=== PATIENT | male | born 1930 | race Caucasian/White ===

== ENCOUNTER 2016-11-17 18:41 | Inpatient (IN) | payer MEDICARE, OTHER ==
[~2016-11-17] VITALS: Ht 182.9 cm; Wt 86.2 kg
[2016-11-17 18:41] VITALS: BP 132/75; PULSE 99; RESP 26; O2SAT 96
[~2016-11-17 18:41] MED LIST: ASPI-973 PO; CIPR-231 PO; FINA5TAB9 PO; FUR20 PO; KTC2C15 TOPICAL; TAMS0.4C29 PO; TRAM50TA2 PO
[2016-11-17] MEDS ORDERED: BETH5TAB PO (18:52)
--- NOTE | 2016-11-17 19:00 | ED.REPORT ---
HPI-Altered Mental Status Date of Service Nov 17, 2016 ED Provider: Rocky Castro MD Pt is an 86 year old male with a hx of CHF, dementia, and cancer presenting to the ED via EMS due to decreased LOC. Associated symptoms include fever (101.2) and a cough. The pt lives in a [facility] and is DNAR code status. Nursing Notes Stated Complaint: DECREASED LOC Chief Complaint: General Complaint Nursing Notes Reviewed: Yes ([employer], [employer] reconciled) Allergies: Coded Allergies: No Known Allergies (Verified , 11/17/16) Scheduled Aspirin (Aspirin) 81 Mg Tablet 81 MG PO DAILY Bethanechol Chloride (Bethanechol Chloride) 5 Mg Tablet 10 MG PO TID Finasteride (Finasteride) 5 Mg Tablet 5 MG PO DAILY Furosemide (Furosemide) 20 Mg Tab 20 MG PO DAILY Tamsulosin ER (Tamsulosin ER) 0.4 Mg Cap.er.24h 0.4 MG PO DAILY Scheduled PRN Ketoconazole (Ketoconazole) 15 Gm Cream..g. 1 APPLIC TOPICAL BID PRN PRN PRN apply to both feet 1-2 x a day as needed General Time Seen by MD: 18:55 Chief Complaint Decreased responsiveness Hx Obtained From: EMS Arrived By: Ambulance Sudden in Onset?: No Onset Occurred: Onset unknown Symptom Duration: Since onset Progression since Onset: Constant Severity: Current: No pain currently Severity: Maximum: No pain Recent Healthcare: No recent doctor visit, No recent hospitalization Similar Sx Previous: No Past Medical History Past Medical History Notes: Auto Glass Worker: Franca Verduzco - Admit for prostate abscess 03/2016 Past Medical History Code Status: DNR/COMFORT CARE History of bladder stones History of bladder CA History of SVT History of osteoarthritis History of hyperlipidemia History of spinal stenosis this History of AAA Reports: Cancer, Congestive heart failure Reports: Atrial fibrillation, Dementia Past Surgical History TURP Status post laminectomy Tonsillectomy Bilateral eardrum reconstruction Sun's neuroma left foot Smoking History Unknown if Ever Smoker Social History Other Social History: Good social support Ambulatory Status Walker Review of Systems Unable to Obtain ROS Patient condition Physical Exam Initial Vital Signs Vital Signs (First) Date Time Temp Pulse Resp B/P Pulse Ox O2 Delivery O2 Flow Rate FiO2 11/17/16 18:41 39.1 99 26 132/75 96 Room Air 12/31/16 20:01 1 Initial VS: Reviewed, Vital signs abnormal Abdomen / GI: No distention Extremities: Vascular intact, Neuro intact, No swelling, No tenderness Skin: Warm, Dry, No cyanosis Psychiatric: Mood/affect normal, Behavior normal, Normal thought content General/Constitutional: Awake Distress / Hydration: Positive: Dehydration moderate Pt is incredibly weak. Eyes closed, flutter to voice. Wiggles toes but is unable to lift arms due to weakness. Skin poor turgor. Head / Eyes: Atraumatic Neck: Atraumatic, Supple Respiratory / Chest: No respiratory distress Coarse breath sounds. Not tachypnic or dyspnic. Cardiovascular: Heart rate NL ENT: Airway patent Interpretation & Diagnostics Lab Results Interpretation Result Diagram: 11/17/16192411/17/161924 Test 11/17/16 19:25 White Blood Count 6.3th/mm3 (3.8-10.1) Red Blood Count 4.73mil/mm3 (4.40-5.80) Hemoglobin 14.3g/dL (13.8-17.2) Hematocrit 44.0% (41.0-50.0) Mean Corpuscular Volume 93.0fL (81-100) Mean Corpuscular Hemoglobin 30.2pg (27.0-35.0) Mean Corpuscular Hemoglobin Concent 32.5% (32.0-37.0) Red Cell Distribution Width 15.1% (12.3-15.4) Platelet Count 177bil/L (150-400) Neutrophils (%) (Auto) 79.1% (40-74) Lymphocytes (%) (Auto) 7.9% (14-46) Monocytes (%) (Auto) 12.0% (4-12) Eosinophils (%) (Auto) 0.6% (0-5) Basophils (%) (Auto) 0.2% (0-3) Sodium Level 135mEq/L (134-144) Potassium Level 4.5mEq/L (3.5-5.2) Chloride Level 100mEq/L (97-108) Carbon Dioxide Level 22mmol/L (18-29) Blood Urea Nitrogen 18mg/dL (8-27) Creatinine 0.83mg/dL (0.76-1.27) Estimat Glomerular Filtration Rate 93mL/min (>59) Glucose Level 120mg/dL (60-99) Lactic Acid Level 1.2mmol/L (0.4-2.0) Calcium Level 8.4mg/dL (8.5-10.1) Total Bilirubin 0.5mg/dL (0.0-1.2) Aspartate Amino Transf (AST/SGOT) 18U/L (0-50) Alanine Aminotransferase (ALT/SGPT) 13U/L (0-44) Alkaline Phosphatase 61U/L (25-160) Troponin T 0.018ug/L (0.0-0.011) Total Protein 6.5g/dL (6.4-8.4) Albumin 3.3g/dL (3.4-5.0) Lab Results Interpretation: CBC normal CMP normal Lactic acid normal Influenza A positive Component 1 indeterminate Blood cultures 2 pending X-Ray Chest Interpretation Chest Xray Interpretation: IMPRESSION: No acute cardiopulmonary disease. Right shoulder rotator cuff arthropathy. Dictated by: Antione Finley M.D. on 11/17/2016 at 19:22 View: Portable, 1 view Interpretation / Wet Read by: Interpret - Radiologist Re-Eval/Medical Decision Med Decision/Clinical Course This is an 86-year-old male who is comfort care and sent over from an adult home , fever and decreased responsiveness. Patienbt has a previous history of encephalopathy, the patient was previously here with sepsis and encephalopathy a few years ago. Patient is quite febrile, appears extremely fatigued and moderately ill and appears profoundly fatigued. Hhe cannot provide me any history, will not engage, but he wiggles his fingers and toes in request, he cannot lift them up off the gurney. No focal deficits are evident. It is difficult to tell if he is any discomfort and he does not nod his head yes or no, as records do indicate he is comfort care. The patient IV placed and was hydrated, as he does appear moderately dehydrated. Blood work is normal except for marginally elevated troponin of uncertain significance, in the setting of Comfort Care the absence of her chest pain and clearly with a presentation with infectious etiology today, not finding evidence of acute, primary cardiac pathology. No overt infiltrate is evident radiographically on chest x-ray. Influenza A, however is positive. I Required to attempt urine, he will be uncomfortable in the setting of a alternate diagnosis influenza a patient Comfort Care, a cathetered urine was not obtained. She received Toradol, low dose, IV fluids, rectal Tylenol, and return to see if the patient could take a dose orally of Tamiflu if if a bedside swallow eval suggests he could. Apparently receiving facility indicates he cannot take him back and care from the current setting. He is ill, profoundly weak-so the plan is admission with continued comfort care and supportive measures. The case is discussed with the hospitalist. Source of Hx: Old records Re-Evaluation/Progress : Time of Eval: 21:22 Patient Status: Condition improved Re-Evaluation/Progress Note: Discussed plan for admission. Pt understands and agrees with plan. Consultation : Referral / Consult Name: Mayte Kwong MD Consulted With: Hospitalist Call Returned at: 21:14 Sales Service Technician: Will see patient, Agrees with plan, Accepts admit Counseled Regarding: Diagnosis, Lab results, Need for follow-up, When/why to return to ED Patient Discharge & Departure Departure Notes COMFORT CARE Impression: Primary Impression: Influenza A Additional Impression: Generalized weakness Disposition: ADMITTED TO HOSPITAL Discharge Condition All VS Reviewed: Yes Condition: Improved Referrals: Jennifer Benavides MD (PCP) Scribe Attestation Portions of this note were transcribed by Kayley Durant. I, Dr. Castro personally performed the history, physical exam and medical decision-making; I reviewed and confirmed the accuracy of the information in the transcribed note. Signed by: Liz Baeza, 11/17/2016 at 9792. copies to: Jennifer Benavides MD, Matthew F MD Nov 17, 2016 19:00 KAYLEY DURANT Nov 17, 2016 19:29
--- NOTE | 2016-11-17 19:24 | DRSVH ---
PROCEDURE: X-RAY CHEST ONE VIEW, PORTABLE ([id number]) INDICATIONS: 86 year-old male with fever and cough. TECHNIQUE: One view of the chest was acquired. COMPARISON: [facility], CR, XR CHEST 1VW (PORTABLE), 03/14/2016, 13:00. [facility], CR, CHEST 2VW, 06/22/2014, 13:22. [facility], CR, CHEST 2VW, 06/18/2014, 15:44. FINDINGS: Surgical changes and devices: None. Lungs and pleura: No pleural effusions or pneumothorax. Lungs are clear. Mediastinum: Mediastinal contours appear normal. Heart size is normal. Bones and chest wall: No suspicious bony lesions. There is left glenohumeral joint degeneration. Th ere is narrowing of the right acromiohumeral interval with superior humeral head migration. Overlying soft tissues appear unremarkable. IMPRESSION: No acute cardiopulmonary disease. Right shoulder rotator cuff arthropathy. Dictated by: Antione Finley M.D. on 11/17/2016 at 19:22 Approved by: Antione Finley M.D. on 11/17/2016 at 19:22
[2016-11-17 19:35] LABS: BASOPHILS % (AUTO) 0.2 % (0-3); EOSINOPHILS % (AUTO) 0.6 % (0-5); Mean Corpuscular Hemoglobin 30.2 pg (27.0-35.0); NEUTROPHILS % (AUTO) 79.1 % (40-74); Platelet Count 177 bil/L (150-400)
[2016-11-17 20:01] VITALS: BP 121/64; PULSE 94; RESP 19; O2SAT 97
[2016-11-17 20:15] LABS: TROPONIN T 0.018 ug/L (0.0-0.011)
[2016-11-17] MEDS ORDERED: Ketorolac 15 mg/mL Inj IVPUSH ONE (20:55)
[2016-11-17 21:24] VITALS: BP 146/69; PULSE 96; RESP 18; O2SAT 94
[2016-11-17] MEDS ORDERED: 0.9% Sodium Chloride 1,000 ML IV SCH (21:39)
[2016-11-17] MEDS ORDERED: Ondansetron 2 mg/mL 2 mL Inj IVPUSH PRN ×2 (21:40→22:10)
[2016-11-17] MEDS ORDERED: Alum-Mag Hydrox-Simeth 30 mL Suspension PO PRN ×2 (21:40→22:10)
[2016-11-17] MEDS ORDERED: Polyethylene Glycol (PEG) 17 Gm Powder PO PRN (22:10)
[2016-11-17 22:33] VITALS: BP 116/63; PULSE 89; RESP 16; O2SAT 93
[2016-11-17 23:57] LABS: BASOPHILS % (AUTO) 0.1 % (0-3); EOSINOPHILS % (AUTO) 0.3 % (0-5); MONOCYTES % (AUTO) 15.4 % (4-12); Mean Corpuscular Hemoglobin 30.4 pg (27.0-35.0); Mean Corpuscular Volume 93.2 fL (81-100); NEUTROPHILS % (AUTO) 77.2 % (40-74); Platelet Count 172 bil/L (150-400)
--- NOTE | 2016-11-18 01:09 | NUR ---
Admission Pt arrived to room 3031 nonverbal, eyes open but pt will not acknowledge staff when spoken to, does not make eye contact, and does not fallow instructions. Staff were unable to orient Pt to room and call light use, bed alarm placed on as well as [place] alarm. Pt was assessed for bed ulcers but none were found as well as no redness. Pressure ulcer protocol initiated any way due to low Richie score. Pt is being turned every 4 hours. Pt was unable to respond to any admission questions. Pt placed on IV fluids and Droplet precautions.
[2016-11-18] MEDS: 0.9% Sodium Chloride 1,000 ML IV SCH ×3 (01:16→20:06)
--- NOTE | 2016-11-18 01:59 | PCM.HPMED ---
Subjective Date of Service Nov 18, 2016 Primary Provider: Admitting Physician: Mayte Kwong MD Primary Care Physician: Jennifer Benavides MD Attending Physician: Mayte Kwong MD Admit Status: From the Emergency Department, Full Admit, Non-Telemetry Chief Complaint: Increasing weakness and lethargy History of Present Illness: This is an 86-year-old male who was brought in from the detention with a fever of 101.2 and a cough. He was having increasing weakness and lethargy. He does live at a senior living and does have a CODE STATUS of DNR/DNI and comfort care only. He is unable to give us any details and is essentially alert but noncommunicative. Patient was found to have a PCR screen positive for influenza A. Chest x-ray did not show any acute cardiopulmonary disease. 6.3. Lactic acid is 1.2 which are here is 39.1. Room air sat is 96%. Review of Systems: Unable to obtain second dairy to patient's dementia Allergies Coded Allergies: No Known Allergies (Verified , 11/17/16) Home Medications Scheduled Aspirin (Aspirin) 81 Mg Tablet 81 MG PO DAILY Bethanechol Chloride (Bethanechol Chloride) 5 Mg Tablet 10 MG PO TID Finasteride (Finasteride) 5 Mg Tablet 5 MG PO DAILY Furosemide (Furosemide) 20 Mg Tab 20 MG PO DAILY Tamsulosin ER (Tamsulosin ER) 0.4 Mg Cap.er.24h 0.4 MG PO DAILY PMH Code Status: DNR/COMFORT CARE History of bladder stones History of bladder CA History of SVT History of osteoarthritis History of hyperlipidemia History of spinal stenosis this History of AAA Reports: Cancer, Congestive heart failure Reports: Atrial fibrillation, Dementia Past Surgical History TURP Status post laminectomy Tonsillectomy Bilateral eardrum reconstruction Sun's neuroma left foot Family History Unobtainable Social History Hx Alcohol Use: No Hx Substance Use: No Hx Tobacco Use: No Smoking Status: Unknown if Ever Smoker Living Arrangement: Assisted Living Exam Vital Signs Vital Sign - Last Date Time Temp Pulse Resp B/P Pulse Ox O2 Delivery O2 Flow Rate FiO2 11/17/16 22:46 Supplement Oxygen 11/17/16 22:33 38.1 89 16 116/63 93 1.00 Exam Constitutional: Elderly man who is noncommunicative and appears in mild pain distress Head: Normocephalic atraumatic Eyes: PERRLA DC EOMI Mouth: Dry mucosa Neck: No adenopathy, carotids 2+ over 4 without bruits bilaterally Chest: Diffuse rhonchi Cor: Regular rate and rhythm S1-S2 Abdomen: Soft nontender bowel sounds are present Extremities: No pedal edema Skin: No rashes Psych: Unobtainable Neuro: Patient does arouse and wake up to voice and touch stimuli. Is oriented 0. Moves all extremities. Lab and Diagnostics Labs Laboratory Tests 72 Hours Test 11/17/16 19:25 11/17/16 23:35 White Blood Count 6.3th/mm3 (3.8-10.1) 6.7th/mm3 (3.8-10.1) Red Blood Count 4.73mil/mm3 (4.40-5.80) 4.41mil/mm3 (4.40-5.80) Hemoglobin 14.3g/dL (13.8-17.2) 13.4g/dL (13.8-17.2) Hematocrit 44.0% (41.0-50.0) 41.1% (41.0-50.0) Mean Corpuscular Volume 93.0fL (81-100) 93.2fL (81-100) Mean Corpuscular Hemoglobin 30.2pg (27.0-35.0) 30.4pg (27.0-35.0) Mean Corpuscular Hemoglobin Concent 32.5% (32.0-37.0) 32.6% (32.0-37.0) Red Cell Distribution Width 15.1% (12.3-15.4) 14.9% (12.3-15.4) Platelet Count 177bil/L (150-400) 172bil/L (150-400) Neutrophils (%) (Auto) 79.1% (40-74) 77.2% (40-74) Lymphocytes (%) (Auto) 7.9% (14-46) 6.9% (14-46) Monocytes (%) (Auto) 12.0% (4-12) 15.4% (4-12) Eosinophils (%) (Auto) 0.6% (0-5) 0.3% (0-5) Basophils (%) (Auto) 0.2% (0-3) 0.1% (0-3) Sodium Level 135mEq/L (134-144) Potassium Level 4.5mEq/L (3.5-5.2) Chloride Level 100mEq/L (97-108) Carbon Dioxide Level 22mmol/L (18-29) Blood Urea Nitrogen 18mg/dL (8-27) Creatinine 0.83mg/dL (0.76-1.27) Estimat Glomerular Filtration Rate 93mL/min (>59) Glucose Level 120mg/dL (60-99) Lactic Acid Level 1.2mmol/L (0.4-2.0) Calcium Level 8.4mg/dL (8.5-10.1) Total Bilirubin 0.5mg/dL (0.0-1.2) Aspartate Amino Transf (AST/SGOT) 18U/L (0-50) Alanine Aminotransferase (ALT/SGPT) 13U/L (0-44) Alkaline Phosphatase 61U/L (25-160) Troponin T 0.018ug/L (0.0-0.011) 0.028ug/L (0.0-0.011) Total Protein 6.5g/dL (6.4-8.4) Albumin 3.3g/dL (3.4-5.0) Prealbumin 18mg/dL (20-40) Result Diagram: 11/17/16233411/17/161924 X-Rays, CTs and MRIs Patient Name: KOREY MANZANO MR#: [id number] Location: [facility] [place] Ordering Phys: DOC, ED Date of Service: 11/17/16 185 PROCEDURE: X-RAY CHEST ONE VIEW, PORTABLE ([id number]) INDICATIONS: 86 year-old male with fever and cough. TECHNIQUE: One view of the chest was acquired. COMPARISON: [facility], CR, XR CHEST 1VW (PORTABLE), 03/14/2016, 13: 00. [facility], CR, CHEST 2VW, 06/22/2014, 13:22. [facility], CR, CHEST 2VW, 06/18/2014, 15:44. FINDINGS: Surgical changes and devices: None. Lungs and pleura: No pleural effusions or pneumothorax. Lungs are clear. Mediastinum: Mediastinal contours appear normal. Heart size is normal. Bones and chest wall: No suspicious bony lesions. There is left glenohumeral joint degeneration. There is narrowing of the right acromiohumeral interval with superior humeral head migration. Overlying soft tissues appear unremarkable. IMPRESSION: No acute cardiopulmonary disease. Right shoulder rotator cuff arthropathy. Dictated by: Antione Finley M.D. on 11/17/2016 at 19:22 Approved by: Antione Finley M.D. on 11/17/2016 at 19:22 Assessment & Plan # Influenza A ,acute infection, present on admission We will initiate Tamiflu 75 mg by mouth twice a day IV fluid hydration and supportive care Will not do too many interventions patient is comfort care only. Goal will be interventions which are towards comfort care Currently no infiltrate noted but we will recheck in a.m. to see if develops with IV fluid hydration # History of BPH, present on admission, chronic Continue current medications # Dementia, chronic, present on admission Presently stable and on no medications for this. # DVT prophylaxis Placed on subcutaneous prophylactic heparin # CODE STATUS Patient is DO NOT RESUSCITATE, DO NOT INTUBATE, Comfort Care only Pain Evaluation: Adequate Pain Control VTE Prophylaxis: Sub-Q Heparin (Unfractionated) VTE Mechanical Devices: Intermittant Pneumatic CD Resuscitation Status: DNR/DNI:Do Not Resuscitate/Intubate Time spent Time spent 40 minutes Mayte Kwong MD Nov 18, 2016 01:59
[2016-11-18 04:36] VITALS: BP 137/68; PULSE 113; RESP 26; O2SAT 92
--- NOTE | 2016-11-18 04:38 | NUR ---
Conversation with Pts Son Pts son called at 0430 inquiring about Pts condition. Son said that Pt typically becomes incoherent and verbally unresponsive when he has fevers. Son also said that Pt has had multiple fevers in the past and they almost all are due to UTI. Will obtain UA via strait cath due to Pt being incontinent and unable to fallow commands.
[2016-11-18 06:17] LABS: APPEARANCE,URINE CLEAR (CLEAR,HAZY); COLOR,URINE YELLOW (YELLOW)
[2016-11-18 06:18] LABS: OCCULT BLOOD,URINE MODERATE (NEGATIVE); UROBILINOGEN,URINE NORMAL (NORMAL)
--- NOTE | 2016-11-18 06:26 | NUR ---
Troponin/UA Md notified of elevated troponin. No change in orders noted at this time from MD. UA obtained via strait cath and sent to lab. Urine was clear mirella and very strong smelling. Pt tolerated well and procedure done using sterile technique.
[2016-11-18] MEDS: Famotidine Inj 20 MG in IV Premix 1 EACH IV SCH ×2 (08:33→20:06)
--- NOTE | 2016-11-18 09:25 | DRSVH ---
PROCEDURE: X-RAY CHEST ONE VIEW, PORTABLE ([id number]) INDICATIONS: cough TECHNIQUE: One view of the chest was acquired. COMPARISON: [facility], CR, XR CHEST 1VW (PORTABLE), 11/17/2016, 18:51. FINDINGS: Surgical changes and devices: None. Lungs and pleura: No pleural effusions or pneumothorax. Lungs are clear. Mediastinum: Mediastinal contours appear normal. Heart size is normal. Bones and chest wall: No suspicious bony lesions. Overlying soft tissues appear unremarkable. IMPRESSION: No acute cardiopulmonary disease process. Dictated by: Madyson Devries MD, PhD on 11/18/2016 at 9:23 Approved by: Madyson Devries MD, PhD on 11/18/2016 at 9:23
[2016-11-18] MEDS: cefTRIAXone Inj 2,000 MG in IV Premix 1 EACH IV SCH (10:20)
[2016-11-18 10:22] LABS: BASOPHILS % (AUTO) 0.1 % (0-3); EOSINOPHILS % (AUTO) 0 % (0-5); Mean Corpuscular Hemoglobin 30.2 pg (27.0-35.0); Mean Corpuscular Volume 93.1 fL (81-100); NEUTROPHILS % (AUTO) 83.9 % (40-74); Platelet Count 161 bil/L (150-400)
[2016-11-18 10:32] LABS: Magnesium 2.1 mg/dL (1.6-2.6)
[2016-11-18 10:38] VITALS: PULSE 85
[2016-11-18 12:45] VITALS: BP 117/77; PULSE 78; RESP 24; O2SAT 96
--- NOTE | 2016-11-18 13:38 | NUR ---
Social Work-initial assessment: Data:See initial assessment. Pt is a 86 y/o male who was admitted on 11/17/16 for influenza A per H&P. Pt's insurance is [employer] and PCP is Jennifer Benavides at the [facility]. EMR reviewed. VINAY met with pt and son Cal at bedside to discuss discharge planning, SW role explained. Pt has been residing at [facility] in [place] [phone] since April. Son states pt has halfway care insurance that cover the cost of the [facility]. Pt uses a fww at baseline and does not drive. Pt has had HH and has been to [facility] in the past. SW discussed DPOA/ advanced directive, son states they have completed these forms before. SW encouraged son to bring a copy into the hospital. Son would like for pt to return to [facility]. Son provided SW with the phone number for funeral director/embalmer/owner [employer] [phone]. VINAY placed a call to Arjun who states they would be willing to accept pt at discharge. Arjun states pt will need to be only a one person transfer, but he does not foresee any issues. [facility] would like to be kept updated and informed closer to discharge. Arjun states if needed they can provide transport at discharge. VINAY provided son with phone number and plan on white board in room. SW will continue to follow. Assessment:Pt who resides at [facility]. Plan:Pt to likely discharge back to [facility] when medically stable. SW to get in touch with funeral director/embalmer/owner [employer] [phone] closer to discharge to confirm plan. VINAY will continue to follow. TAMIE Malin Addendum: 11/18/16 at 1345 by RIOS BOO Amended: Links added.
--- NOTE | 2016-11-18 14:10 | NUR ---
Mentation Patient non verbal early in shift, with persistence, patient opened eyes, said his only pain was where my hand was touching his leg, denied shortness of breath. Patient then closed eyes and would not answer further questions. Only directions he was able to follow was to open his eyes-only for a moment. Addendum: 11/18/16 at 1416 by STEPHAN MARQUEZ RN Patient js Mccall, reporting that when patient has a UTI, he will become mute or have "word salad" until the infection begins to clear. Addendum: 11/18/16 at 1835 by STEPHAN MARQUEZ RN Patient temp 102.2. Tylenol suppository given. fever reduced to 101.2 after 1 hr. Patient having intermittent drenching sweats, denies nausea/discomfort.
--- NOTE | 2016-11-18 16:42 | PCM.PNMED ---
Subjective Date of Service Nov 18, 2016 Subjective Patient is poorly responsive. He is arousable but then goes right back to sleep. He appears to be comfortable and in no pain. Exam Vital Signs Vital Sign - Last Date Time Temp Pulse Resp B/P Pulse Ox O2 Delivery O2 Flow Rate FiO2 11/18/16 14:54 39.0 11/18/16 12:45 78 24 117/77 96 Nasal Cannula 1.00 Intake and Output 11/17/16 11/17/16 11/18/16 Cumulative From/Thru 15:00 23:00 07:00 11/17/16 18:41 - 11/18/16 05:59 Intake Total 692 ml 692 ml Output Total 351 ml 351 ml Balance 341 ml 341 ml Intake Oral 0 ml 0 ml IV Total 692 ml 692 ml Output Urine Total 351 ml 351 ml # Bowel Movements 0 0 Exam General: Patient is poorly responsive. He is arousable and does awaken with stimulation. However, he goes right back to sleep. Overall patient appears very comfortable. HEENT: Head is atraumatic normocephalic. Eyes: Pupils are equally round and reactive to light and accommodation. Extraocular muscles are unable to be tested. Sclera are white anicteric. Subconjunctival mucosa is pink. Ears and nose are unremarkable. Oropharynx: There is no mucosal lesions, there is no thrush, there is no pharyngitis. Neck: Is supple, there are no nodes or masses or tenderness. Chest: Is clear to auscultation and percussion. There are no rales, rhonchi, wheezes or rubs. Heart: Rate, rhythm is regular. There is no murmur, rub or gallop. Abdomen: Good bowel sounds are present. Abdomen is soft, nontender, no organomegaly or masses were appreciated. Extremities: Are symmetrical and well perfused. There is no edema, there is no cellulitis, no rash. Neurologic: There are no focal neurological deficits. Cranial nerves II through XII are intact. There are no sensory or motor deficits. Psychiatric: Patients mood is calm and shows no sign of agitation. Genital: Deferred Rectal: Deferred Lab and Diagnostics Result Diagram: 11/18/16 0945 11/18/16 0945 Microbiology Name: KOREY MANZANO Juani Age/Sex: 86/M Attend Dr: Rocky Castro MD Acct: [id number] Unit: [id number] Status: PRE ER Location: SED Re11/17/16 Disch: Specimen: [id number] Collected: 11/17/16 Status: COMP Req#: [id number] Received: 11/17/16 Source: [facility]BECCA Sp Desc : Subm Dr: Rocky Castro MD Ordered: RAPID FLU IRS Comments: Collected by Nurse/Unit? Y/N Y Procedure Result Verified Site Microbiology REJI INFLUENZA RAPID AG SCREEN Final 11/17/16 RESULT POSITIVE FOR FLU A NEGATIVE FOR FLU B TIME CALLED: 1925 FLOOR/DOCTOR: RAMIREZ X-Rays, CTs and MRIs Patient Name: KOREY MANZANO MR#: [id number] [place] [facility] [place] Phys: BERNARDINO, ED Date of Service: 11/17/16 7573 PROCEDURE: X-RAY CHEST ONE VIEW, PORTABLE ([id number]) INDICATIONS: 86 year-old male with fever and cough. TECHNIQUE: One view of the chest was acquired. COMPARISON: [facility], CR, XR CHEST 1VW (PORTABLE), 03/14/2016, 13: 00. [facility], CR, CHEST 2VW, 06/22/2014, 13:22. [facility], CR, CHEST 2VW, 06/18/2014, 15:44. FINDINGS: Surgical changes and devices: None. Lungs and pleura: No pleural effusions or pneumothorax. Lungs are clear. Mediastinum: Mediastinal contours appear normal. Heart size is normal. Bones and chest wall: No suspicious bony lesions. There is left glenohumeral joint degeneration. There is narrowing of the right acromiohumeral interval with superior humeral head migration. Overlying soft tissues appear unremarkable. IMPRESSION: No acute cardiopulmonary disease. Right shoulder rotator cuff arthropathy. Dictated by: Antione Finley M.D. on 11/17/2016 at 19:22 Approved by: Antione Finley M.D. on 11/17/2016 at 19:22 Cardiac Echo Impressions Echocardiogram Report Name: KOREY MANZANO Study Date: 06/17/2014Height: 71 in Hospital Exam Location: [facility] Weight: 193 lb Gender: Male BSA: 2.1 meters2 : 1930 Age: 84 yrs BP: 96/60 mmHg Reason For Study: CHF, SEPSIS Ordering Physician: [facility] Hospitalist Performed By: Jules Kirkland Referring Physician: Dr. Ion Benavides Interpretation Summary The left ventricle is normal in size. Left ventricular systolic function is mildly reduced. The ejection fraction is estimated to be 45%. There is basal inferior wall akinesis. The right ventricle is normal in size and function. The right ventricular systolic pressure is estimated at 33 mmHg assuming a right atrial pressure of 3 mm Hg. The left atrium is moderately dilated. Right atrial size is normal. There is moderate tricuspid regurgitation. There is no other significant valvular heart disease. The ascending aorta is mildly enlarged. Assessment & Plan This is an 86-year-old male who was brought in from a home with a fever of 101.2 and a cough. He was having increasing weakness and lethargy. He does live at a custodial and does have a CODE STATUS of DNR/DNI and comfort care only. He is unable to give us any details and is essentially alert but noncommunicative. Patient was found to have a PCR screen positive for influenza A. Chest x-ray did not show any acute cardiopulmonary disease. 6.3. Lactic acid is 1.2 which are here is 39.1. Room air sat is 96%. # Influenza A ,acute infection, present on admission We will initiate Tamiflu 75 mg by mouth twice a day when he is able to swallow IV fluid hydration and supportive care Will not do too many interventions patient is comfort care only per request of the patient's son. His ONDINA ST form states that he is a DO NOT RESUSCITATE/DO NOT INTUBATE and comfort care only. Goal will be interventions which are towards comfort care the patient's son agrees with IV antibiotics Currently no infiltrate noted but we will recheck in a.m. to see if develops with IV fluid hydration # Urinary tract infection -We will start IV Rocephin and see if this improves patient's level of consciousness. # History of BPH, present on admission, chronic Continue current medications # Dementia, chronic, present on admission Presently stable and on no medications for this. # DVT prophylaxis Placed on subcutaneous prophylactic heparin # CODE STATUS Patient is DO NOT RESUSCITATE, DO NOT INTUBATE, Comfort Care only Pain Evaluation: Adequate Pain Control GI Prophylaxis: H2 eren VTE Prophylaxis: Sub-Q Heparin (Unfractionated) VTE Mechanical Devices: Intermittant Pneumatic CD Resuscitation Status: DNR/DNI:Do Not Resuscitate/Intubate Jim Rodrigues MD Nov 18, 2016 16:42
[2016-11-18 20:44] VITALS: BP 106/66; PULSE 81; RESP 22; O2SAT 94
[2016-11-19 06:20] VITALS: BP 113/58; PULSE 65; RESP 22; O2SAT 95
[2016-11-19] MEDS: 0.9% Sodium Chloride 1,000 ML IV SCH (06:27)
[2016-11-19 07:04] LABS: BASOPHILS % (AUTO) 0.2 % (0-3); EOSINOPHILS % (AUTO) 0.2 % (0-5); MONOCYTES % (AUTO) 12.6 % (4-12); Mean Corpuscular Hemoglobin 29.9 pg (27.0-35.0); Mean Corpuscular Volume 94.4 fL (81-100); NEUTROPHILS % (AUTO) 73.5 % (40-74); Platelet Count 148 bil/L (150-400)
[2016-11-19 07:35] LABS: Magnesium 2.1 mg/dL (1.6-2.6)
[2016-11-19] MEDS: Dextrose 5% 0.45% NaCl 1,000 ML IV SCH (09:31)
[2016-11-19] MEDS: cefTRIAXone Inj 2,000 MG in IV Premix 1 EACH IV SCH (09:33)
--- NOTE | 2016-11-19 09:53 | NUR ---
Evaluation completed. Please go to "Notes" then click on "Assessments and Notes" (bottom left corner of screen). Then select appropriate discipline tab on top of screen.
[2016-11-19 10:14] LABS: BASOPHILS % (AUTO) 0.2 % (0-3); EOSINOPHILS % (AUTO) 0.2 % (0-5); MONOCYTES % (AUTO) 10.6 % (4-12); Mean Corpuscular Hemoglobin 30.2 pg (27.0-35.0); Mean Corpuscular Volume 95.1 fL (81-100); NEUTROPHILS % (AUTO) 72.1 % (40-74); Platelet Count 157 bil/L (150-400)
[2016-11-19] MEDS: Famotidine Inj 20 MG in IV Premix 1 EACH IV SCH ×2 (10:38→21:31)
--- NOTE | 2016-11-19 11:15 | NUR ---
Te Brendan brought in copy of DPOA/ advanced directive paperwork, which SW has placed in the chart. Ting Cabrera MSW
--- NOTE | 2016-11-19 11:55 | NUR ---
Mentation: Patient awake and alert this am. Answering questions appropriately. ST evaluated swallowing. PO medications administered crushed w/pudding. Tolerated well. Son at bedside.
[2016-11-19 16:03] VITALS: BP 138/77; PULSE 74; RESP 20; O2SAT 96
[2016-11-19 20:55] VITALS: BP 124/75; PULSE 71; RESP 20; O2SAT 94
--- NOTE | 2016-11-19 21:46 | PCM.PNMED ---
Subjective Date of Service Nov 19, 2016 Subjective Patient is today awake for the first time and speaking for the first time since admission. He has no specific complaints. He is still very weak and unable to get out of bed at this time. Apparently at home he is able to walk around with a walker. Exam Vital Signs Vital Sign - Last Date Time Temp Pulse Resp B/P Pulse Ox O2 Delivery O2 Flow Rate FiO2 11/19/16 21:22 Supplement Oxygen 11/19/16 20:55 37.1 71 20 124/75 94 1.00 Intake and Output 11/18/16 11/18/16 11/19/16 Cumulative From/Thru 15:00 23:00 07:00 11/17/16 18:41 - 11/19/16 06:48 Intake Total 1042 ml 1315 ml 3049 ml Output Total 351 ml Balance 1042 ml 1315 ml 2698 ml Intake Oral 0 ml 0 ml 0 ml IV Total 1042 ml 1315 ml 3049 ml Output Urine Total 351 ml # Voids 3 2 5 # Bowel Movements 2 2 Exam General: Patient is poorly responsive. He is arousable and does awaken with stimulation. However, he goes right back to sleep. Overall patient appears very comfortable. HEENT: Head is atraumatic normocephalic. Eyes: Pupils are equally round and reactive to light and accommodation. Extraocular muscles are unable to be tested. Sclera are white anicteric. Subconjunctival mucosa is pink. Ears and nose are unremarkable. Oropharynx: There is no mucosal lesions, there is no thrush, there is no pharyngitis. Neck: Is supple, there are no nodes, or masses or tenderness. Chest: Is clear to auscultation and percussion. There are no rales, rhonchi, wheezes or rubs. Heart: Rate, rhythm is regular. There is no murmur, rub or gallop. Abdomen: Good bowel sounds are present. Abdomen is soft, nontender, no organomegaly or masses were appreciated. Extremities: Are symmetrical and well perfused. There is no edema, there is no cellulitis, no rash. Neurologic: There are no focal neurological deficits. Cranial nerves II through XII are intact. There are no sensory or motor deficits. Psychiatric: Patients mood is calm and shows no sign of agitation. Genital: Deferred Rectal: Deferred Lab and Diagnostics Result Diagram: 11/19/16 0915 11/19/16 0653 Microbiology Name: KOREY MANZANO Age/Sex: 86/M Attend Dr: Rocky Castro MD Acct: [id number] Unit: [id number] Status: PRE ER Location: SED Re11/17/16 Disch: Specimen: [id number] Collected: 11/17/16 Status: COMP Req#: [id number] Received: 11/17/16 Source: REBECCA Sp Desc : Subm Dr: Rocky Castro MD Ordered: RAPID FLU IRS Comments: Collected by Nurse/Unit? Y/N Y Procedure Result Verified Site Microbiology ERJI INFLUENZA RAPID AG SCREEN Final 11/17/16-1931 RESULT POSITIVE FOR FLU A NEGATIVE FOR FLU B TIME CALLED: 1925 FLOOR/DOCTOR: RAMIREZ X-Rays, CTs and MRIs Patient Name: KOREY MANZANO MR#: [id number] Location[place] [facility] [place] Ordering Phys: BERNARDINO, ED Date of Service: 11/17/16 8617 PROCEDURE: X-RAY CHEST ONE VIEW, PORTABLE ([id number]) INDICATIONS: 86 year-old male with fever and cough. TECHNIQUE: One view of the chest was acquired. COMPARISON: [facility], , XR CHEST 1VW (PORTABLE), 03/14/2016, 13: 00. [facility], , CHEST 2VW, 06/22/2014, 13:22. [facility], , CHEST 2VW, 06/18/2014, 15:44. FINDINGS: Surgical changes and devices: None. Lungs and pleura: No pleural effusions or pneumothorax. Lungs are clear. Mediastinum: Mediastinal contours appear normal. Heart size is normal. Bones and chest wall: No suspicious bony lesions. There is left glenohumeral joint degeneration. There is narrowing of the right acromiohumeral interval with superior humeral head migration. Overlying soft tissues appear unremarkable. IMPRESSION: No acute cardiopulmonary disease. Right shoulder rotator cuff arthropathy. Dictated by: Antione Finley M.D. on 11/17/2016 at 19:22 Approved by: Antione Finley M.D. on 11/17/2016 at 19:22 Cardiac Echo Impressions Echocardiogram Report Name: KOREY MANZANO Study Date: 06/17/2014Height: 71 in Hospital Exam Location: [facility] Weight: 193 lb Gender: Male BSA: 2.1 meters2 : 1930 Age: 84 yrs BP: 96/60 mmHg Reason For Study: CHF, SEPSIS Ordering Physician: [facility] Hospitalist Performed By: Jules Kirkland Referring Physician: Dr. Ion Benavides Interpretation Summary The left ventricle is normal in size. Left ventricular systolic function is mildly reduced. The ejection fraction is estimated to be 45%. There is basal inferior wall akinesis. The right ventricle is normal in size and function. The right ventricular systolic pressure is estimated at 33 mmHg assuming a right atrial pressure of 3 mm Hg. The left atrium is moderately dilated. Right atrial size is normal. There is moderate tricuspid regurgitation. There is no other significant valvular heart disease. The ascending aorta is mildly enlarged. Assessment & Plan This is an 86-year-old male who was brought in from a home with a fever of 101.2 and a cough. He was having increasing weakness and lethargy. He does live at a senior care and does have a CODE STATUS of DNR/DNI and comfort care only. He is unable to give us any details and is essentially alert but noncommunicative. Patient was found to have a PCR screen positive for influenza A. Chest x-ray did not show any acute cardiopulmonary disease. 6.3. Lactic acid is 1.2 which are here is 39.1. Room air sat is 96%. # Influenza A ,acute infection, present on admission We will initiate Tamiflu 75 mg by mouth twice a day when he is able to swallow IV fluid hydration and supportive care Will not do too many interventions patient is comfort care only per request of the patient's son Cal, who is at bedside today. His OND[facility] ST form states that he is a DO NOT RESUSCITATE/DO NOT INTUBATE and comfort care only. Goal will be interventions which are towards comfort care the patient's son agrees with IV antibiotics and will continue with IV Rocephin alone. Currently no infiltrate noted but we will recheck in a.m. to see if develops with IV fluid hydration. # Urinary tract infection -We will continue IV Rocephin. -Urine culture shows mixed anaid. I have asked microbiology to see if they can isolate a pathogen or two. # History of BPH, present on admission, chronic Continue current medications # Dementia, chronic, present on admission Presently stable and on no medications for this. # DVT prophylaxis Placed on subcutaneous prophylactic heparin # As patient is now waking up I have asked speech therapy to evaluate the patient and recommend a diet. # CODE STATUS Patient is DO NOT RESUSCITATE, DO NOT INTUBATE, Comfort Care only Pain Evaluation: Adequate Pain Control GI Prophylaxis: H2 eren VTE Prophylaxis: Sub-Q Heparin (Unfractionated) VTE Mechanical Devices: Intermittant Pneumatic CD Resuscitation Status: DNR/DNI:Do Not Resuscitate/Intubate Jim Rodrigues MD Nov 19, 2016 21:46
[2016-11-20] MEDS: Dextrose 5% 0.45% NaCl 1,000 ML IV SCH ×3 (03:26→22:30)
--- NOTE | 2016-11-20 03:47 | NUR ---
Restlessness Pt awake most of night, pulled out IV and tried to get out of bed. Restarted IV, covered with sleeve. Not oriented to hospital, encouraged pt to get rest for next day, turned down lights. Pt resting in bed now, will continue to monitor.
[2016-11-20 04:02] VITALS: BP 121/71; PULSE 71; RESP 24
[2016-11-20 04:40] VITALS: BP 161/84; PULSE 92; RESP 22; O2SAT 97
[2016-11-20 06:10] LABS: BASOPHILS % (AUTO) 0.2 % (0-3); EOSINOPHILS % (AUTO) 2.1 % (0-5); MONOCYTES % (AUTO) 9.6 % (4-12); Mean Corpuscular Hemoglobin 30.4 pg (27.0-35.0); Mean Corpuscular Volume 93.5 fL (81-100); NEUTROPHILS % (AUTO) 70.9 % (40-74); Platelet Count 147 bil/L (150-400)
--- NOTE | 2016-11-20 08:15 | NUR ---
IV infiltrated IV in R hand swollen and red, catheter appears to have pulled part of the way out and not infusing into vein. Right hand, wrist and lower arm is very swollen and pink. Pt denies pain. IV catheter D/Cd intact. R hand elevated on pillow, IV therapy contacted to re-start IV. Frequent rounding in place, will continue to monitor
[2016-11-20] MEDS: Famotidine Inj 20 MG in IV Premix 1 EACH IV SCH ×2 (08:30→21:52)
[2016-11-20 12:44] VITALS: BP 130/70; PULSE 77; RESP 22; O2SAT 97
--- NOTE | 2016-11-20 13:04 | NUR ---
Social Work-readiness for discharge: Data:EMR Reviewed. Pt is on day 3 of hospitalization for influenza A per H&P. Pt is not medically stable to discharge tomorrow, maybe tomorrow. PT worked with pt and recommending SNF, pt requiring max assist. VINAY placed a call to [facility]-owner [employer] Arjun [phone] to discuss pt. Arjun states he feels like they may be able to manage pt, but he would need to complete a bedside assessment. Arjun states he is not able to come in until tomorrow morning around 1030. Arjun states if they cannot take him back then SNF would be needed. VINAY placed a call to [facility] to discuss discharge planning, SW role explained. SW explained PT recommendations. Te Cardona would like for pt to return to [facility] if they can take him, but if not then he would like pt to go to [place]. SW contacted [place] and they are not taking referrals. SW placed a call back to son and informed him of this information. Son then provided SW with choice of [facility]. SW faxed PASRR and Facesheet to [facility] and then provided access in [employer]. Paperwork and PASRR placed in the chart. SW will continue to follow. Assessment:return to [facility] vs SNF. Plan:Pt's [facility] to come and complete re-assessment of pt tomorrow at 1030. If [facility] is not able to accept pt back, Referral has been made to [facility] for SNF. PT recommending SNF. Paperwork and PASRR placed in the chart. SW will continue to follow. TAMIE Malin
--- NOTE | 2016-11-20 13:18 | NUR ---
Evaluation completed. Please go to "Notes" then click on "Assessments and Notes" (bottom left corner of screen). Then select appropriate discipline tab on top of screen.
--- NOTE | 2016-11-20 14:10 | NUR ---
[facility] can accept with Dr. Jaren Thornton to follow. TAMIE Malin Addendum: 11/21/16 at 0854 by RIOS CHAUDHRY SS Correction: Dr. Allison to follow. TAMIE Malin
[2016-11-20] MEDS: cefTRIAXone Inj 2,000 MG in IV Premix 1 EACH IV SCH (15:31)
--- NOTE | 2016-11-20 15:44 | NUR ---
NUTRITION ASSESSMENT: ASSESS: Pt is an 86yo M admitted for Influenza A. Pt is on a stimulation diet with no liquids per ST. He has been tolerating stimulation diet well at 100% x2 days. PMHX: dementia and bladder cancer LABS: Reviewed. Cl 109, Kiln Car Unloader .51, Glu 127, Ca 7.8, phos 2.0, alb 2.7 MEDS: Reviewed. GI: BMx1 11/20 SKIN: Richie 17, wound consult pending CURRENT WTS: 86.2kg, BMI 25.8kg/m2 DIET: stimulation, no liquids. PO 100%x2 meals EST. NEEDS: Kcals: 2155-2585kcal/day (25-30kcal/kg) Pro: 85-100g/day (1.0-1.2g/kg) NUTRITION DIAGNOSIS: 1.) Inadequate oral intake related to decreased ability to consume sufficient energy as evidenced by need for stimulation diet due to dementia 2.) Chew/swallow difficulty related to dementia as evidence by need for stimulation diet with no liquids per ST NUTRITION INTERVENTION: 1.) Continue diet per ST and continue to encourage PO intake w/ 1:1 feeding 2.) Will continue to monitor PO intake/tolerance and need for supplementation once diet advanced MONITOR / EVAL: PO, wt, ST, diet order/tolerance, GI, POC, nutrition status. Will continue to monitor per moderate nutrition risk guidelines
--- NOTE | 2016-11-20 16:40 | NUR ---
Wound Care Pressure ulcer protocol received. Patient seen at bedside. 86 yo male admitted with influenza. Skin assessment reveals pt with red but blanchable sacrum and buttocks,No other skin issues noted. Will recommend P500 bed as pt does not turn himself in bed or reposition, recommend frequent repositioning.
[2016-11-20] MEDS: Calamine 177 mL Lotion TOPICAL SCH ×2 (17:50→23:00)
[2016-11-20 21:24] VITALS: BP 125/73; PULSE 89; RESP 20; O2SAT 94
--- NOTE | 2016-11-20 22:34 | PCM.PNMED ---
Subjective Date of Service Nov 20, 2016 Subjective Patient is more awake and alert. He very much wants to continuously get out of bed. He also is asking to eat a salad. However, he was a two-person assist just to get him out of bed earlier today with physical therapy and is on a diet specified by speech therapy. I explained to him that it is too dangerous to get out of bed but he appears to be confused. Exam Vital Signs Vital Sign - Last Date Time Temp Pulse Resp B/P Pulse Ox O2 Delivery O2 Flow Rate FiO2 11/20/16 22:09 Supplement Oxygen 11/20/16 21:24 36.8 89 20 125/73 94 11/20/16 12:44 1.00 Intake and Output 11/19/16 11/19/16 11/20/16 Cumulative From/Thru 15:00 23:00 07:00 11/17/16 18:41 - 11/20/16 06:29 Intake Total 1318 ml 497 ml 4864 ml Output Total 351 ml Balance 1318 ml 497 ml 4513 ml Intake Oral 239 ml 0 ml 239 ml IV Total 1079 ml 497 ml 4625 ml Output Urine Total 351 ml # Voids 2 3 10 # Bowel Movements 2 1 5 Exam General: Patient is much more alert than yesterday and fully responsive. However, he is quite confused. HEENT: Head is atraumatic normocephalic. Eyes: Pupils are equally round and reactive to light and accommodation. Extraocular muscles are unable to be tested. Sclera are white anicteric. Subconjunctival mucosa is pink. Ears and nose are unremarkable. Oropharynx: There is no mucosal lesions, there is no thrush, there is no pharyngitis. Neck: Is supple, there are no nodes, or masses or tenderness. Chest: Is clear to auscultation and percussion. There are no rales, rhonchi, wheezes or rubs. Heart: Rate, rhythm is regular. There is no murmur, rub or gallop. Abdomen: Good bowel sounds are present. Abdomen is soft, nontender, no organomegaly or masses were appreciated. Extremities: Are symmetrical and well perfused. There is no edema, there is no cellulitis, no rash. Neurologic: There are no focal neurological deficits. Cranial nerves II through XII are intact. There are no sensory or motor deficits. Psychiatric: Patients mood is calm and shows no sign of agitation other than he wants to get out of bed. He continues to ask to do so. Genital: Deferred Rectal: Deferred Lab and Diagnostics Result Diagram: 11/20/1653411/20/1635 Microbiology Name: KOREY MANZANO Age/Sex: 86/M Attend Dr: Rocky Castro MD Acct: [id number] Unit: [id number] Status: PRE ER Location: SED Re11/17/16 Disch: Specimen: [id number] Collected: 11/17/16 Status: COMP Req#: [id number] Received: 11/17/16 Source: REBECCA Sp Desc : Subm Dr: Rocky Castro MD Ordered: RAPID FLU IRS Comments: Collected by Nurse/Unit? Y/N Y Procedure Result Verified Site Microbiology REJI INFLUENZA RAPID AG SCREEN Final 11/17/16-1931 RESULT POSITIVE FOR FLU A NEGATIVE FOR FLU B TIME CALLED: 1925 FLOOR/DOCTOR: RAMIREZ X-Rays, CTs and MRIs Patient Name: KOREY MANZANO MR#: [id number] Location: [facility] Ordering Phys: DOC, ED Date of Service: 11/17/161852 PROCEDURE: X-RAY CHEST ONE VIEW, PORTABLE ([id number]) INDICATIONS: 86 year-old male with fever and cough. TECHNIQUE: One view of the chest was acquired. COMPARISON: [facility], , XR CHEST 1VW (PORTABLE), 03/14/2016, 13: 00. [facility], , CHEST 2VW, 06/22/2014, 13:22. [facility], , CHEST 2VW, 06/18/2014, 15:44. FINDINGS: Surgical changes and devices: None. Lungs and pleura: No pleural effusions or pneumothorax. Lungs are clear. Mediastinum: Mediastinal contours appear normal. Heart size is normal. Bones and chest wall: No suspicious bony lesions. There is left glenohumeral joint degeneration. There is narrowing of the right acromiohumeral interval with superior humeral head migration. Overlying soft tissues appear unremarkable. IMPRESSION: No acute cardiopulmonary disease. Right shoulder rotator cuff arthropathy. Dictated by: Antione Finley M.D. on 11/17/2016 at 19:22 Approved by: Antione Finley M.D. on 11/17/2016 at 19:22 Cardiac Echo Impressions Echocardiogram Report Name: KOREY MANZANO Study Date: 06/17/2014Height: 71 in Hospital Exam Location: [facility] Weight: 193 lb Gender: Male BSA: 2.1 meters2 : 1930 Age: 84 yrs BP: 96/60 mmHg Reason For Study: CHF, SEPSIS Ordering Physician: [facility] Hospitalist Performed By: Jules Kirkland Referring Physician: Dr. Ion Benavides Interpretation Summary The left ventricle is normal in size. Left ventricular systolic function is mildly reduced. The ejection fraction is estimated to be 45%. There is basal inferior wall akinesis. The right ventricle is normal in size and function. The right ventricular systolic pressure is estimated at 33 mmHg assuming a right atrial pressure of 3 mm Hg. The left atrium is moderately dilated. Right atrial size is normal. There is moderate tricuspid regurgitation. There is no other significant valvular heart disease. The ascending aorta is mildly enlarged. Assessment & Plan This is an 86-year-old male who was brought in from a home with a fever of 101.2 and a cough. He was having increasing weakness and lethargy. He does live at a alf and does have a CODE STATUS of DNR/DNI and comfort care only. He is unable to give us any details and is essentially alert but noncommunicative. Patient was found to have a PCR screen positive for influenza A. Chest x-ray did not show any acute cardiopulmonary disease. 6.3. Lactic acid is 1.2 which are here is 39.1. Room air sat is 96%. # Influenza A ,acute infection, present on admission -We will continue Tamiflu 75 mg by mouth twice a day now that he is able to swallow -IV fluid hydration and supportive care to continue for now. -Will not do too many interventions patient is comfort care only per request of the patient's son Cal, who is at bedside today. His POLST form states that he is a DO NOT RESUSCITATE/DO NOT INTUBATE and comfort care only. -Goal will be interventions which are towards comfort care the patient's son agrees with IV antibiotics and will continue with IV Rocephin alone. -Chest x-ray currently shows no infiltrate noted but we will recheck in a.m. to see if develops with IV fluid hydration. # Urinary tract infection -We will continue IV Rocephin. -Urine culture shows mixed anaid. I have asked microbiology to see if they can isolate a pathogen or two. # History of BPH, present on admission, chronic -Continue current medications # Dementia, chronic, present on admission Presently stable and on no medications for this. # DVT prophylaxis -Placed on subcutaneous prophylactic heparin # Altered level of consciousness on admission -As patient is now waking up I have asked speech therapy to evaluate the patient and recommend a diet. -Continue physical therapy -His alf will come to evaluate him in a.m. to see if he would be able to go back to the alf. Apparently there is able to ambulate independently with a walker. My suspicion is that patient will be back to his baseline strength with therapy in 1-2 days. # CODE STATUS -Patient is DO NOT RESUSCITATE, DO NOT INTUBATE, Comfort Care only Disposition: Patient will likely be back to his baseline activity level in 1-2 days with continued physical therapy. Dr. Doshi to follow in a.m. Pain Evaluation: Adequate Pain Control GI Prophylaxis: H2 eren VTE Prophylaxis: Sub-Q Heparin (Unfractionated) VTE Mechanical Devices: Intermittant Pneumatic CD Resuscitation Status: DNR/DNI:Do Not Resuscitate/Intubate Jim Rodrigues MD Nov 20, 2016 22:34
[2016-11-21] VITALS (9 sets, daily range): BP systolic 120–160; BP diastolic 62–78; PULSE 68–95; RESP 14–22; O2SAT 93–95
[2016-11-21] MEDS: Calamine 177 mL Lotion TOPICAL SCH ×3 (05:25→20:17)
[2016-11-21 06:45] LABS: BASOPHILS % (AUTO) 0.2 % (0-3); EOSINOPHILS % (AUTO) 2.2 % (0-5); MONOCYTES % (AUTO) 11.4 % (4-12); Mean Corpuscular Hemoglobin 29.6 pg (27.0-35.0); Mean Corpuscular Volume 93.3 fL (81-100); NEUTROPHILS % (AUTO) 64.9 % (40-74); Platelet Count 142 bil/L (150-400)
[2016-11-21] MEDS: Famotidine Inj 20 MG in IV Premix 1 EACH IV SCH ×2 (08:59→20:16)
[2016-11-21] MEDS ORDERED: Albuterol-Ipratropium 3 mL Inhalation Solution ONE (09:28)
[2016-11-21] MEDS: Albuterol-Ipratropium 3 mL Inhalation Solution NEB SCH ×3 (12:05→20:15)
[2016-11-21 12:23] LABS: APPEARANCE,URINE SLIGHTLY CLOUDY (CLEAR,HAZY); COLOR,URINE STRAW (YELLOW); OCCULT BLOOD,URINE SMALL (NEGATIVE); UROBILINOGEN,URINE NORMAL (NORMAL)
--- NOTE | 2016-11-21 14:02 | NUR ---
APPLE signed with son via phone. TAMIE Malin
--- NOTE | 2016-11-21 14:03 | NUR ---
Social Work-readiness for discharge: Data:EMR reviewed. Pt is on day 4 of hospitalization for influenza per H&P. Pt is not medically stable at this time, anticipate another day or two. [facility] glassware defect repairer Arjun came to see pt today and completed assessment.At this time, Arjun feels like pt would be too much care for their facility and would also recommend SNF placement. SW placed a call to son Brendan and explained at this time PT continues to recommend SNF and [facility] glassware defect repairer came saw pt and feels like he is too much right now. Brendan in agreement for SNF placement and SW explained that pt has been accepted at [facility]. Paperwork and PASRR in the chart. SW will continue to follow. Assessment:Pt who would benefit from SNF. plan:[facility] has accepted pt with Dr. Allison to follow. Paperwork and PASRR in the chart. SW will continue to follow. TAMIE Malin
[2016-11-21] MEDS: Dextrose 5% 0.45% NaCl 1,000 ML IV SCH ×2 (16:17→20:17)
--- NOTE | 2016-11-21 16:56 | PCM.PNMED ---
Subjective Date of Service Nov 21, 2016 Subjective pt was coughing while laying down, dry using accessory muscle didn't follow commands reported multiple BM Exam Vital Signs Vital Sign - Last Date Time Temp Pulse Resp B/P Pulse Ox O2 Delivery O2 Flow Rate FiO2 11/21/16 16:30 76 20 95 Room Air 11/21/16 15:48 160/67 11/21/16 11:16 36.7 11/20/16 12:44 1.00 Intake and Output 11/20/16 11/20/16 11/21/16 Cumulative From/Thru 15:00 23:00 07:00 11/17/16 18:41 - 11/21/16 06:10 Intake Total 0 ml 866 ml 5730 ml Output Total 351 ml Balance 0 ml 866 ml 5379 ml Intake Oral 0 ml 0 ml 239 ml IV Total 866 ml 5491 ml Output Urine Total 351 ml # Voids 4 2 16 # Bowel Movements 3 8 Exam intermittent coughing, distressed no JVD, MMM, no LAD tachycardic, nl s1, s2 no mrg coarse BS, diffuse crackles, no wheezing S,ND,NT,normoactive BS+ warm, no edema, pulses 2/2 Lab and Diagnostics Result Diagram: 11/21/16 0632 11/21/16 0632 Microbiology Name: KOREY MANZANO Age/Sex: 86/M Attend Dr: Rocky Castro MD Acct: [id number] Unit: [id number] Status: PRE ER Location: SED Re11/17/16 Disch: Specimen: [id number] Collected: 11/17/16 Status: COMP Req#: [id number] Received: 11/17/16 Source: NSP Sp Desc : Subm Dr: Rocky Castro MD Ordered: RAPID FLU IRS Comments: Collected by Nurse/Unit? Y/N Y Procedure Result Verified Site Microbiology REJI INFLUENZA RAPID AG SCREEN Final 11/17/16 RESULT POSITIVE FOR FLU A NEGATIVE FOR FLU B TIME CALLED: 1925 FLOOR/DOCTOR: RAMIREZ X-Rays, CTs and MRIs Patient Name: KOREY MANZANO MR#: [id number] Location: [facility] [place] Ordering Phys: DOC, ED Date of Service: 11/17/161852 PROCEDURE: X-RAY CHEST ONE VIEW, PORTABLE ([id number]) INDICATIONS: 86 year-old male with fever and cough. TECHNIQUE: One view of the chest was acquired. COMPARISON: [facility], CR, XR CHEST 1VW (PORTABLE), 03/14/2016, 13: 00. [facility], CR, CHEST 2VW, 06/22/2014, 13:22. [facility], CR, CHEST 2VW, 06/18/2014, 15:44. FINDINGS: Surgical changes and devices: None. Lungs and pleura: No pleural effusions or pneumothorax. Lungs are clear. Mediastinum: Mediastinal contours appear normal. Heart size is normal. Bones and chest wall: No suspicious bony lesions. There is left glenohumeral joint degeneration. There is narrowing of the right acromiohumeral interval with superior humeral head migration. Overlying soft tissues appear unremarkable. IMPRESSION: No acute cardiopulmonary disease. Right shoulder rotator cuff arthropathy. Dictated by: Antione Finley M.D. on 11/17/2016 at 19:22 Approved by: Antione Finley M.D. on 11/17/2016 at 19:22 Cardiac Echo Impressions Echocardiogram Report Name: KOREY MANZANO Study Date: 06/17/2014Height: 71 in Hospital Exam Location: [facility] Weight: 193 lb Gender: Male BSA: 2.1 meters2 : 1930 Age: 84 yrs BP: 96/60 mmHg Reason For Study: CHF, SEPSIS Ordering Physician: [facility] Hospitalist Performed By: Jules Kirkland Referring Physician: Dr. Ion Benavides Interpretation Summary The left ventricle is normal in size. Left ventricular systolic function is mildly reduced. The ejection fraction is estimated to be 45%. There is basal inferior wall akinesis. The right ventricle is normal in size and function. The right ventricular systolic pressure is estimated at 33 mmHg assuming a right atrial pressure of 3 mm Hg. The left atrium is moderately dilated. Right atrial size is normal. There is moderate tricuspid regurgitation. There is no other significant valvular heart disease. The ascending aorta is mildly enlarged. Assessment & Plan This is an 86-year-old male who was brought in from a home with a fever of 101.2 and a cough. He was having increasing weakness and lethargy. He does live at a intermediate and does have a CODE STATUS of DNR/DNI and comfort care only. He is unable to give us any details and is essentially alert but noncommunicative. Patient was found to have a PCR screen positive for influenza A. Chest x-ray did not show any acute cardiopulmonary disease. 6.3. Lactic acid is 1.2 which are here is 39.1. Room air sat is 96%. acute, active #Fever, leukocytosis, weakness, lethargy from sepsis secondary to Influenza A+, unlikely bacterial PNA, UTI, present on admission, last temp 11/18. remained stable, -continue Tamiflu 75 mg by mouth twice a day for 5D, until tomorrow -continue d5 1/2ns 80cc/hr given poor oral intake -Will not do too many interventions patient is comfort care only per request of the patient's son Cal, who is at bedside today. His POLST form states that he is a DO NOT RESUSCITATE/DO NOT INTUBATE and comfort care only. -stopped IV CFX today based on UCX-S.epididermis, mixed, likely contamination -start duonebs q4h given persistent dry cough, likely d/c upon d/c -procalcitonin today >2(first set), remained afebrile, HD stable, if clinically suggestive of PNA, will restart abx # Altered level of consciousness on admission, likely septic encephalopathy + underlying cognitive impairment, remained calm today -aggressive orientation, haldol prn for agitation chronic, stable # History of BPH, present on admission, chronic, continue current medications # Dementia, chronic, present on admission, stable dvt ppx: HSQ dispo:likely SNF within 1-2days diet; STIM diet, can tolerate oral meds DNR/DNI/COMFORT CARE # DVT prophylaxis -Placed on subcutaneous prophylactic heparin GI Prophylaxis: H2 eren VTE Prophylaxis: Sub-Q Heparin (Unfractionated) VTE Mechanical Devices: Intermittant Pneumatic CD Resuscitation Status: DNR/DNI:Do Not Resuscitate/Intubate Time spent 35min Indy Doshi MD Nov 21, 2016 16:47
[2016-11-22] VITALS (8 sets, daily range): BP systolic 120–132; BP diastolic 74–78; PULSE 66–97; RESP 16–25; O2SAT 93–97
[2016-11-22] MEDS: Albuterol-Ipratropium 3 mL Inhalation Solution NEB SCH ×6 (00:28→20:09)
--- NOTE | 2016-11-22 05:42 | NUR ---
Activity Pt slept quietly in bed, more alert tonight and answered questions. Cooperative with cares. HOB up for easier breathing, some coughing. Will monitor progress.
[2016-11-22] MEDS: Calamine 177 mL Lotion TOPICAL SCH ×3 (07:00→23:00)
[2016-11-22 07:17] LABS: BASOPHILS % (AUTO) 0.2 % (0-3); EOSINOPHILS % (AUTO) 2.1 % (0-5); MONOCYTES % (AUTO) 10.2 % (4-12); Mean Corpuscular Hemoglobin 29.6 pg (27.0-35.0); Mean Corpuscular Volume 93.2 fL (81-100); NEUTROPHILS % (AUTO) 64.6 % (40-74); Platelet Count 148 bil/L (150-400)
[2016-11-22 08:43] LABS: APPEARANCE,URINE CLEAR (CLEAR,HAZY); COLOR,URINE STRAW (YELLOW); OCCULT BLOOD,URINE SMALL (NEGATIVE); UROBILINOGEN,URINE NORMAL (NORMAL)
[2016-11-22] MEDS: Famotidine Inj 20 MG in IV Premix 1 EACH IV SCH ×2 (09:20→20:30)
[2016-11-22] MEDS: Dextrose 5% 0.45% NaCl 1,000 ML IV SCH (15:29)
--- NOTE | 2016-11-22 15:52 | NUR ---
Refusing medication/PO intake ZAKIYA, This RN spoke directly into pt L ear, instructing pt, medication is on the spoon in apple sauce. Offered spoon to lips, pt pursed lips closed and refused to open mouth. Asked pt if he was refusing to take his medication. Pt responded with R thumb up. REWARDS CONSULTANT offered pt bites of magic cup, pt again refused to open mouth to eat. Educated pt regarding importance of taking medications and eating in order to assist the body with healing. Pt continues to refuse to participate with receiving oral intake. Call light in place, will continue to monitor
--- NOTE | 2016-11-22 16:25 | PCM.PNMED ---
Subjective Date of Service Nov 22, 2016 Subjective pt looked more alert but still not coherent, has hearing aids but didn't seem working intermittently cough, no sputum Exam Vital Signs Vital Sign - Last Date Time Temp Pulse Resp B/P Pulse Ox O2 Delivery O2 Flow Rate FiO2 11/22/16 15:53 84 20 93 Room Air 11/22/16 13:19 36.6 120/74 2.00 Intake and Output 11/21/16 11/21/16 11/22/16 Cumulative From/Thru 15:00 23:00 07:00 11/17/16 18:41 - 11/22/16 06:35 Intake Total 0 ml 1666 ml 7396 ml Output Total 300 ml 651 ml Balance -300 ml 1666 ml 6745 ml Intake Oral 0 ml 0 ml 239 ml IV Total 1666 ml 7157 ml Output Urine Total 300 ml 651 ml # Voids 3 2 21 # Bowel Movements 8 Exam intermittent coughing, distressed no JVD, MMM, no LAD RRR, nl s1, s2 no mrg coarse BS, less crackles than yesterday diffusely S,ND,NT,normoactive BS+ warm, no edema, pulses 2/2 IVs and Medications Medications Reviewed: Medications were reviewed in detail Lab and Diagnostics Result Diagram: 11/22/1670411/22/16704 Microbiology Name: KOREY MANZANO Age/Sex: 86/M Attend Dr: Rocky Castro MD Acct: [id number] Unit: [id number] Status: PRE ER Location: SED Re11/17/16 Disch: Specimen: [id number] Collected: 11/17/16 Status: BERHANE Req#: [id number] Received: 11/17/16 Source: NSP Sp Desc : Subm Dr: Rocky Castro MD Ordered: RAPID FLU IRS Comments: Collected by Nurse/Unit? Y/N Y Procedure Result Verified Site Microbiology REJI INFLUENZA RAPID AG SCREEN Final 11/17/16 RESULT POSITIVE FOR FLU A NEGATIVE FOR FLU B TIME CALLED: 1925 FLOOR/DOCTOR: RAMIREZ X-Rays, CTs and MRIs Patient Name: KOREY MANZANO MR#: [id number] Location: SED Ordering Phys: DOC, ED Date of Service: 11/17/161852 PROCEDURE: X-RAY CHEST ONE VIEW, PORTABLE ([id number]) INDICATIONS: 86 year-old male with fever and cough. TECHNIQUE: One view of the chest was acquired. COMPARISON: [facility], CR, XR CHEST 1VW (PORTABLE), 03/14/2016, 13: 00. [facility], CR, CHEST 2VW, 06/22/2014, 13:22. [facility], CR, CHEST 2VW, 06/18/2014, 15:44. FINDINGS: Surgical changes and devices: None. Lungs and pleura: No pleural effusions or pneumothorax. Lungs are clear. Mediastinum: Mediastinal contours appear normal. Heart size is normal. Bones and chest wall: No suspicious bony lesions. There is left glenohumeral joint degeneration. There is narrowing of the right acromiohumeral interval with superior humeral head migration. Overlying soft tissues appear unremarkable. IMPRESSION: No acute cardiopulmonary disease. Right shoulder rotator cuff arthropathy. Dictated by: Antione Finley M.D. on 11/17/2016 at 19:22 Approved by: Antione Finley M.D. on 11/17/2016 at 19:22 Cardiac Echo Impressions Echocardiogram Report Name: KOREY MANZANO Study Date: 06/17/2014Height: 71 in Hospital Exam Location: [facility] Weight: 193 lb Gender: Male BSA: 2.1 meters2 : 1930 Age: 84 yrs BP: 96/60 mmHg Reason For Study: CHF, SEPSIS Ordering Physician: [facility] Hospitalist Performed By: Jules Kirkland Referring Physician: Dr. Ion Benavides Interpretation Summary The left ventricle is normal in size. Left ventricular systolic function is mildly reduced. The ejection fraction is estimated to be 45%. There is basal inferior wall akinesis. The right ventricle is normal in size and function. The right ventricular systolic pressure is estimated at 33 mmHg assuming a right atrial pressure of 3 mm Hg. The left atrium is moderately dilated. Right atrial size is normal. There is moderate tricuspid regurgitation. There is no other significant valvular heart disease. The ascending aorta is mildly enlarged. Assessment & Plan This is an 86-year-old male who was brought in from a home with a fever of 101.2 and a cough. He was having increasing weakness and lethargy. He does live at a fdc and does have a CODE STATUS of DNR/DNI and comfort care only. He is unable to give us any details and is essentially alert but noncommunicative. Patient was found to have a PCR screen positive for influenza A. Chest x-ray did not show any acute cardiopulmonary disease. 6.3. Lactic acid is 1.2 which are here is 39.1. Room air sat is 96%. acute, active #Fever, leukocytosis, weakness, lethargy from sepsis secondary to Influenza A+, unlikely bacterial PNA, UTI, present on admission, last temp 11/18. remained stable, -continue Tamiflu 75 mg by mouth twice a day for 5D, until tomorrow -continue d5 1/2ns 80cc/hr given poor oral intake -Will not do too many interventions patient is comfort care only per request of the patient's son Cal, who is at bedside today. His POLST form states that he is a DO NOT RESUSCITATE/DO NOT INTUBATE and comfort care only. -stopped IV CFX 11/21 based on UCX-S.epididermis, mixed, likely contamination, repeat UA clean. -continue duonebs q4h given persistent dry cough, likely d/c upon d/c -trends procalcitonin, pt remained afebrile, HD stable, if clinically suggestive of PNA, will restart abx # Altered level of consciousness on admission, likely septic encephalopathy + underlying cognitive impairment, improving today -aggressive orientation, haldol prn for agitation chronic, stable # History of BPH, present on admission, chronic, continue current medications # Dementia, chronic, present on admission, stable dvt ppx: HSQ dispo:likely SNF tomorrow given improvement clinically diet; STIM diet, can tolerate oral meds DNR/DNI/COMFORT CARE GI Prophylaxis: H2 eren VTE Prophylaxis: Sub-Q Heparin (Unfractionated) VTE Mechanical Devices: Intermittant Pneumatic CD Resuscitation Status: DNR/DNI:Do Not Resuscitate/Intubate Time spent 35min Indy Doshi MD Nov 22, 2016 16:22
--- NOTE | 2016-11-22 19:46 | NUR ---
Refuses assessment and medications would not answer any questions, would only say "I am trying to get out of here"
[2016-11-23] MEDS: Albuterol-Ipratropium 3 mL Inhalation Solution NEB SCH ×4 (00:10→13:00)
[2016-11-23 04:37] VITALS: PULSE 73; RESP 16; O2SAT 93
[2016-11-23] MEDS: Dextrose 5% 0.45% NaCl 1,000 ML IV SCH ×3 (04:39→21:05)
[2016-11-23 06:02] VITALS: BP 123/81; PULSE 77; RESP 24; O2SAT 92
--- NOTE | 2016-11-23 06:14 | NUR ---
Refusing Care Patient still refusing to speak or respond to most questions. Advised he needs a new bed per PU protocol and would he mind switching which prompted no response. Explained he is on 7/10 doses for Influenza A treatment which also prompted no response.
[2016-11-23 06:56] LABS: BASOPHILS % (AUTO) 0.1 % (0-3); EOSINOPHILS % (AUTO) 1.8 % (0-5); MONOCYTES % (AUTO) 10.9 % (4-12); Mean Corpuscular Hemoglobin 30.2 pg (27.0-35.0); Mean Corpuscular Volume 91.8 fL (81-100); NEUTROPHILS % (AUTO) 71.1 % (40-74); Platelet Count 175 bil/L (150-400)
[2016-11-23] MEDS: Calamine 177 mL Lotion TOPICAL SCH ×3 (07:00→23:00)
[2016-11-23 07:30] LABS: Magnesium 2.1 mg/dL (1.6-2.6); Phosphorus 2.7 mg/dL (2.5-4.9)
[2016-11-23 08:45] VITALS: PULSE 96; RESP 20; O2SAT 92
[2016-11-23] MEDS: Famotidine Inj 20 MG in IV Premix 1 EACH IV SCH ×2 (09:02→20:54)
--- NOTE | 2016-11-23 11:15 | NUR ---
Social Work: Readiness for d/c Data: Pt is on day 6 of hospitalization. EMR reviewed, pt discussed in rounds. states that pt will likely be ready for d/c either today or tomorrow. MD requested DIRECTOR LEARNING AND DEVELOPMENT called pt's son to see if he can come to the hospital today to meet with MD and pt regarding pt's mentation and see if he is at his baseline. DIRECTOR LEARNING AND DEVELOPMENT called pt's son who states he will be at the hospital at 4:00pm today. DIRECTOR LEARNING AND DEVELOPMENT notified MD. DIRECTOR LEARNING AND DEVELOPMENT will continue to follow. Assessment: Pt who has caregiving at baseline. Plan: Pt will d/c to [facility] with Dr barrera to follow when medically stable, likely today or tomorrow. DIRECTOR LEARNING AND DEVELOPMENT will continue to follow. TAMIE Elizabeth
--- NOTE | 2016-11-23 11:17 | NUR ---
APPLE signed Verbal consent to sign by pt's son over phone. TAMIE Elizabeth
[2016-11-23 13:00] VITALS: PULSE 70; RESP 20; O2SAT 92
--- NOTE | 2016-11-23 13:00 | NUR ---
NUTRITION FOLLOW-UP: ASSESS: Pt is an 86yo M admitted for Influenza A. Pt continues on a stimulation diet per ST. ST has signed off as they believe this is his baseline diet. PO has been good at 100% most meals. PMHX: dementia and bladder cancer LABS: Reviewed. Crimp Setter .53, Glu 131, Ca 8.3, Alb 3.0 MEDS: Reviewed. lasix GI: BMx4 11/20 SKIN: Richie 14, no PU per WC CURRENT WTS: 86.2kg, BMI 25.8kg/m2 DIET: stimulation, no liquids. PO 100% most meals EST. NEEDS: Kcals: 2155-2585kcal/day (25-30kcal/kg) Pro: 85-100g/day (1.0-1.2g/kg) NUTRITION DIAGNOSIS: 1.) Inadequate oral intake related to decreased ability to consume sufficient energy as evidenced by need for stimulation diet due to dementia--PERSISTS 2.) Chew/swallow difficulty related to dementia as evidence by need for stimulation diet with no liquids per ST--PERSISTS NUTRITION INTERVENTION: 1.) Continue diet per ST and continue to encourage PO intake w/ 1:1 feeding 2.) Will continue to monitor PO intake/tolerance and need for supplementation once diet advanced MONITOR / EVAL: PO, wt, ST, diet order/tolerance, GI, POC, nutrition status. Will continue to monitor per moderate nutrition risk guidelines
[2016-11-23 14:19] VITALS: BP 120/78; PULSE 76; RESP 24; O2SAT 94
--- NOTE | 2016-11-23 14:39 | PCM.PNMED ---
Subjective Date of Service Nov 23, 2016 Subjective pt is alert but not responding to multiple staffs looked comfortable intermittently coughing, no sputum refused BD tx so changed to prn Exam Vital Signs Vital Sign - Last Date Time Temp Pulse Resp B/P Pulse Ox O2 Delivery O2 Flow Rate FiO2 11/23/16 14:19 36.6 76 24 120/78 94 Room Air 11/22/16 13:19 2.00 Intake and Output 11/22/16 11/22/16 11/23/16 Cumulative From/Thru 15:00 23:00 07:00 11/17/16 18:41 - 11/23/16 06:22 Intake Total 0 ml 787 ml 8183 ml Output Total 651 ml Balance 0 ml 787 ml 7532 ml Intake Oral 0 ml 0 ml 239 ml IV Total 787 ml 7944 ml Output Urine Total 651 ml # Voids 3 3 27 # Bowel Movements 0 8 Exam intermittent coughing, distressed no JVD, MMM, no LAD RRR, nl s1, s2 no mrg coarse BS, less crackles than yesterday S,ND,NT,normoactive BS+ warm, no edema, pulses 2/2 IVs and Medications Medications Reviewed: Medications were reviewed in detail Lab and Diagnostics Result Diagram: 11/23/1661911/23/16619 Microbiology Name: KOREY MANZANO Age/Sex: 86/M Attend Dr: Rocky Castro MD Acct: [id number] Unit: [id number] Status: PRE ER Location: SED Re11/17/16 Disch: Specimen: [id number] Collected: 11/17/16 Status: COMP Req#: [id number] Received: 11/17/16 Source: NSP Sp Desc : Subm Dr: Rocky Castro MD Ordered: RAPID FLU IRS Comments: Collected by Nurse/Unit? Y/N Y Procedure Result Verified Site Microbiology REJI INFLUENZA RAPID AG SCREEN Final 11/17/16 RESULT POSITIVE FOR FLU A NEGATIVE FOR FLU B TIME CALLED: 1925 FLOOR/DOCTOR: RAMIREZ X-Rays, CTs and MRIs Patient Name: KOREY MANZANO MR#: [id number] [place] [facility] [place] Phys: DOC, ED Date of Service: 11/17/161852 PROCEDURE: X-RAY CHEST ONE VIEW, PORTABLE ([id number]) INDICATIONS: 86 year-old male with fever and cough. TECHNIQUE: One view of the chest was acquired. COMPARISON: [facility], CR, XR CHEST 1VW (PORTABLE), 03/14/2016, 13: 00. [facility], CR, CHEST 2VW, 06/22/2014, 13:22. [facility], CR, CHEST 2VW, 06/18/2014, 15:44. FINDINGS: Surgical changes and devices: None. Lungs and pleura: No pleural effusions or pneumothorax. Lungs are clear. Mediastinum: Mediastinal contours appear normal. Heart size is normal. Bones and chest wall: No suspicious bony lesions. There is left glenohumeral joint degeneration. There is narrowing of the right acromiohumeral interval with superior humeral head migration. Overlying soft tissues appear unremarkable. IMPRESSION: No acute cardiopulmonary disease. Right shoulder rotator cuff arthropathy. Dictated by: Antione Finley M.D. on 11/17/2016 at 19:22 Approved by: Antione Finley M.D. on 11/17/2016 at 19:22 Cardiac Echo Impressions Echocardiogram Report Name: KOREY MANZANO Study Date: 06/17/2014Height: 71 in Hospital Exam Location: [facility] Weight: 193 lb Gender: Male BSA: 2.1 meters2 : 1930 Age: 84 yrs BP: 96/60 mmHg Reason For Study: CHF, SEPSIS Ordering Physician: [facility] Hospitalist Performed By: Jules Kirkland Referring Physician: Dr. Ion Benavides Interpretation Summary The left ventricle is normal in size. Left ventricular systolic function is mildly reduced. The ejection fraction is estimated to be 45%. There is basal inferior wall akinesis. The right ventricle is normal in size and function. The right ventricular systolic pressure is estimated at 33 mmHg assuming a right atrial pressure of 3 mm Hg. The left atrium is moderately dilated. Right atrial size is normal. There is moderate tricuspid regurgitation. There is no other significant valvular heart disease. The ascending aorta is mildly enlarged. Assessment & Plan This is an 86-year-old male who was brought in from a home with a fever of 101.2 and a cough. He was having increasing weakness and lethargy. He does live at a residential and does have a CODE STATUS of DNR/DNI and comfort care only. He is unable to give us any details and is essentially alert but noncommunicative. Patient was found to have a PCR screen positive for influenza A. Chest x-ray did not show any acute cardiopulmonary disease. 6.3. Lactic acid is 1.2 which are here is 39.1. Room air sat is 96%. acute, active #Fever, leukocytosis, weakness, lethargy from sepsis secondary to Influenza A+, unlikely bacterial PNA, UTI, present on admission, last temp 11/18. remained stable, -finished Tamiflu 75 mg by mouth twice a day for 5D -continue d5 1/2ns 80cc/hr given poor oral intake -Will not do too many interventions patient is comfort care only per request of the patient's son Cal, who is at bedside today. His POLST form states that he is a DO NOT RESUSCITATE/DO NOT INTUBATE and comfort care only. -stopped IV CFX 1/4 based on UCX-S.epididermis, mixed, likely contamination, repeat UA clean. -continue duonebs q4h prn given persistent dry cough, likely d/c upon d/c -trends procalcitonin, pt remained afebrile, HD stable, if clinically suggestive of PNA, will restart abx # Altered level of consciousness on admission, catarino meyers septic encephalopathy + underlying cognitive impairment/hearing difficulty. this is confusing as MS greatly improved on HD2, then remained somnolent with appropriate alertness for past 2days, possibly hypoactive delirium. -aggressive orientation, haldol prn for agitation -will verify with Son, come to hospital at 4pm about his mental status, to see this is close to his baseline chronic, stable # History of BPH, present on admission, chronic, continue current medications # Dementia, chronic, present on admission, stable dvt ppx: HSQ dispo:likely SNF tomorrow diet; STIM diet, can tolerate oral meds DNR/DNI/COMFORT CARE if needed GI Prophylaxis: H2 eren VTE Prophylaxis: Sub-Q Heparin (Unfractionated) VTE Mechanical Devices: Intermittant Pneumatic CD Resuscitation Status: DNR/DNI:Do Not Resuscitate/Intubate Time spent 35min Indy Doshi MD Nov 23, 2016 14:38
[2016-11-23] MEDS ORDERED: Albuterol-Ipratropium 3 mL Inhalation Solution NEB PRN (15:50)
--- NOTE | 2016-11-23 18:33 | NUR ---
PO intake/behavior Pt consumed all of breakfast and lunch, willingly took PO medications crushed in apple sauce. Family came to [facility] at appro 1630 with batteries for pt hearing aids. batteries changed, hearing aids inserted, pt is responding to questions appropriately. Call light within reach, will continue to monitor.
[2016-11-23 21:32] VITALS: BP 136/77; PULSE 100; RESP 22; O2SAT 95
[2016-11-23] MEDS: Nystatin 100,000 Unit/mL 5 mL Suspension PO SCH (22:30)
--- NOTE | 2016-11-23 23:29 | NUR ---
Refusing medications / Thrush white patchy thrush on tongue, received order for nystatin swish and swallow, unable to administer as patient refuses to swallow and blows air forcefully at liquid presented. Reinforced medical reasoning for Nystatin and encouraged patient to choose to get well in face of pending discharge plans.
[2016-11-24] MEDS: Nystatin 100,000 Unit/mL 5 mL Suspension PO SCH ×5 (06:00→19:50)
[2016-11-24 06:23] LABS: BASOPHILS % (AUTO) 0.1 % (0-3); EOSINOPHILS % (AUTO) 0.9 % (0-5); Mean Corpuscular Hemoglobin 30.1 pg (27.0-35.0); Mean Corpuscular Volume 91.2 fL (81-100); NEUTROPHILS % (AUTO) 71.8 % (40-74); Platelet Count 227 bil/L (150-400)
[2016-11-24 06:25] VITALS: BP 127/81; PULSE 74; RESP 20; O2SAT 93
[2016-11-24 06:48] LABS: Phosphorus 2.8 mg/dL (2.5-4.9)
--- NOTE | 2016-11-24 09:39 | DRSVH ---
PROCEDURE: X-RAY CHEST ONE VIEW, PORTABLE ([id number]) INDICATIONS: developing post flu PNA TECHNIQUE: One view of the chest was acquired. COMPARISON: [facility], CR, CHEST 2VW, 06/18/2014, 9:00. [facility], CR, [address] 2VW, 06/18/2014, 15:44. [facility], CR, XR CHEST 1VW (PORTABLE), 03/14/2016, 13:00. [facility], CT, CT ABD PELVIS W CON, 03/28/2016, 13:48. [facility], CR, XR CHES T 1VW (PORTABLE), 11/18/2016, 8:08. FINDINGS: Surgical changes and devices: None. Lungs and pleura: No pleural effusions or pneumothorax. Lungs are clear. Mild scattered atelectasi s/scarring. Mediastinum: Mediastinal contours appear normal. Heart size is normal. Bones and chest wall: No suspicious bony lesions. Overlying soft tissues appear unremarkable. Bila teral shoulder joint degeneration IMPRESSION: No acute disease Dictated by: Perez Hector M.D. on 11/24/2016 at 9:29 Approved by: Perez Hector M.D. on 11/24/2016 at 9:37
[2016-11-24] MEDS: Famotidine Inj 20 MG in IV Premix 1 EACH IV SCH ×2 (10:05→20:38)
[2016-11-24] MEDS: Calamine 177 mL Lotion TOPICAL SCH ×3 (10:06→23:39)
[2016-11-24] MEDS: Dextrose 5% 0.45% NaCl 1,000 ML IV SCH (10:31)
--- NOTE | 2016-11-24 13:12 | PCM.PNMED ---
Subjective Date of Service Nov 24, 2016 Subjective pt remained very somnolent, didn't answer questions appropriately refused PT Exam Vital Signs Vital Sign - Last Date Time Temp Pulse Resp B/P Pulse Ox O2 Delivery O2 Flow Rate FiO2 11/24/16 10:33 Supplement Oxygen 11/24/16 06:25 37.5 74 20 127/81 93 1.00 Intake and Output 11/23/16 11/23/16 11/24/16 Cumulative From/Thru 15:00 23:00 07:00 11/17/16 18:41 - 11/24/16 06:43 Intake Total 0 ml 960 ml 9143 ml Output Total 651 ml Balance 0 ml 960 ml 8492 ml Intake Oral 0 ml 0 ml 239 ml IV Total 960 ml 8904 ml Output Urine Total 651 ml # Voids 3 3 33 # Bowel Movements 0 8 Exam intermittent coughing, distressed no JVD, MMM, no LAD RRR, nl s1, s2 no mrg coarse BS, less crackles than yesterday S,ND,NT,normoactive BS+ warm, no edema, pulses 2/2 IVs and Medications Medications Reviewed: Medications were reviewed in detail Lab and Diagnostics Result Diagram: 11/24/16 0535 11/24/16 0535 Microbiology Name: KOREY MANZANO Age/Sex: 86/M Attend Dr: Rocky Castro MD Acct: [id number] Unit: [id number] Status: PRE ER Location: SED Re11/17/16 Disch: Specimen: [id number] Collected: 11/17/16 Status: COMP Req#: [id number] Received: 11/17/16 Source: NSP Sp Desc : Subm Dr: Rocky Castro MD Ordered: RAPID FLU IRS Comments: Collected by Nurse/Unit? Y/N Y Procedure Result Verified Site Microbiology REJI INFLUENZA RAPID AG SCREEN Final 11/17/16 RESULT POSITIVE FOR FLU A NEGATIVE FOR FLU B TIME CALLED: 1925 FLOOR/DOCTOR: RAMIREZ X-Rays, CTs and MRIs Patient Name: KOREY MANZANO MR#: [id number] Location: [facility] [place] Ordering Phys: DOC, ED Date of Service: 11/17/161852 PROCEDURE: X-RAY CHEST ONE VIEW, PORTABLE ([id number]) INDICATIONS: 86 year-old male with fever and cough. TECHNIQUE: One view of the chest was acquired. COMPARISON: [facility], CR, XR CHEST 1VW (PORTABLE), 03/14/2016, 13: 00. [facility], CR, CHEST 2VW, 06/22/2014, 13:22. [facility], CR, CHEST 2VW, 06/18/2014, 15:44. FINDINGS: Surgical changes and devices: None. Lungs and pleura: No pleural effusions or pneumothorax. Lungs are clear. Mediastinum: Mediastinal contours appear normal. Heart size is normal. Bones and chest wall: No suspicious bony lesions. There is left glenohumeral joint degeneration. There is narrowing of the right acromiohumeral interval with superior humeral head migration. Overlying soft tissues appear unremarkable. IMPRESSION: No acute cardiopulmonary disease. Right shoulder rotator cuff arthropathy. Dictated by: Antione Finley M.D. on 11/17/2016 at 19:22 Approved by: Antione Finley M.D. on 11/17/2016 at 19:22 Cardiac Echo Impressions Echocardiogram Report Name: KOREY MANZANO Study Date: 06/17/2014Height: 71 in Hospital Exam Location: [facility] Weight: 193 lb Gender: Male BSA: 2.1 meters2 : 1930 Age: 84 yrs BP: 96/60 mmHg Reason For Study: CHF, SEPSIS Ordering Physician: [facility] Hospitalist Performed By: Jules Kirkland Referring Physician: Dr. Ion Benavides Interpretation Summary The left ventricle is normal in size. Left ventricular systolic function is mildly reduced. The ejection fraction is estimated to be 45%. There is basal inferior wall akinesis. The right ventricle is normal in size and function. The right ventricular systolic pressure is estimated at 33 mmHg assuming a right atrial pressure of 3 mm Hg. The left atrium is moderately dilated. Right atrial size is normal. There is moderate tricuspid regurgitation. There is no other significant valvular heart disease. The ascending aorta is mildly enlarged. Assessment & Plan This is an 86-year-old male who was brought in from a home with a fever of 101.2 and a cough. He was having increasing weakness and lethargy. He does live at a correction and does have a CODE STATUS of DNR/DNI and comfort care only. He is unable to give us any details and is essentially alert but noncommunicative. Patient was found to have a PCR screen positive for influenza A. Chest x-ray did not show any acute cardiopulmonary disease. 6.3. Lactic acid is 1.2 which are here is 39.1. Room air sat is 96%. acute, active #Fever, leukocytosis, weakness, lethargy from sepsis secondary to Influenza A+, finished Tamiflu 75 mg by mouth twice a day for 5Dunlikely bacterial PNA, UTI, present on admission, last temp 11/18, however, pt had another fever today38.5, source is unclear at the moment, cannot exclude BI [employer] LEAD infection. -continue d5 1/2ns 80cc/hr given poor oral intake -Will not do too many interventions patient is comfort care only per request of the patient's son Cal, who is at bedside today. His POLST form states that he is a DO NOT RESUSCITATE/DO NOT INTUBATE and comfort care only. -stopped IV CFX 11/21 based on UCX-S.epididermis, mixed, likely contamination, repeat UA clean, -today will try CFX/Vanc/ampicillin for possible bacterial meningitis -continue duonebs q4h prn given persistent dry cough, likely d/c upon d/c -trends procalcitonin, repeat today0.22, unlikely pt is becoming septic, # Altered level of consciousness on admission, catarino meyers septic encephalopathy + underlying cognitive impairment/hearing difficulty. this is confusing as MS greatly improved on HD2, then remained somnolent with appropriate alertness for past 2days, possibly hypoactive delirium. -aggressive orientation, haldol prn for agitation -Son verified that pt is different from baseline, however, no particular expectation for improvement, unlikely agrees for invasive w/u such as LP chronic, stable # History of BPH, present on admission, chronic, continue current medications # Dementia, chronic, present on admission, stable dvt ppx: HSQ dispo:pending with new abx challenge, likely 1-2more days diet; STIM diet, can tolerate oral meds DNR/DNI/COMFORT CARE if needed GI Prophylaxis: H2 eren VTE Prophylaxis: Sub-Q Heparin (Unfractionated) VTE Mechanical Devices: Intermittant Pneumatic CD Resuscitation Status: DNR/DNI:Do Not Resuscitate/Intubate Time spent 35min Indy Doshi MD Nov 24, 2016 13:12
[2016-11-24] MEDS ORDERED: Ampicillin Inj 2,000 MG in 0.9% Sodium Chloride 100 ML IV SCH (13:20)
[2016-11-24] MEDS ORDERED: Vancomycin Inj 1,750 MG in Dextrose 5% 500 ML IV ONE (13:40)
[2016-11-24 14:00] VITALS: BP 136/81; PULSE 74; RESP 20; O2SAT 93
[2016-11-24] MEDS: cefTRIAXone Inj 2,000 MG in IV Premix 1 EACH IV SCH (15:25)
[2016-11-24] MEDS: Vancomycin Dose per Pharmacist XX SCH (16:26)
[2016-11-24] MEDS ORDERED: 0.9% Sodium Chloride 250 ML ONE (19:36)
[2016-11-24] MEDS: Ampicillin Inj 2,000 MG in 0.9% Sodium Chloride 100 ML IV SCH ×2 (19:45→23:39)
[2016-11-24 20:11] VITALS: BP 129/70; PULSE 98; RESP 22; O2SAT 96
[2016-11-25] MEDS: Ampicillin Inj 2,000 MG in 0.9% Sodium Chloride 100 ML IV SCH ×5 (03:41→21:00)
[2016-11-25] MEDS: Dextrose 5% 0.45% NaCl 1,000 ML IV SCH ×3 (04:59→23:35)
[2016-11-25 06:23] VITALS: BP 129/68; PULSE 86; RESP 22; O2SAT 96
[2016-11-25 07:52] LABS: BASOPHILS % (AUTO) 0.1 % (0-3); EOSINOPHILS % (AUTO) 0.9 % (0-5); MONOCYTES % (AUTO) 15.4 % (4-12); Mean Corpuscular Volume 90.7 fL (81-100); NEUTROPHILS % (AUTO) 70.8 % (40-74); Platelet Count 220 bil/L (150-400)
[2016-11-25 08:24] LABS: Magnesium 2.2 mg/dL (1.6-2.6); Phosphorus 2.5 mg/dL (2.5-4.9)
--- NOTE | 2016-11-25 09:58 | PCM.CONPHA ---
Subjective Date of Service: Nov 25, 2016 Vancomycin Reason for Pharmacy Consult: Vancomycin Dosing Assessment/Plan Assessment/Plan Patient is an 86 y.o. male receiving vancomycin for possible bacterial meningitis. Concurrent abx include: ampicillin and ceftriaxone. WBC count is 7.7 and the patient is febrile. Patient is 86 kg, 72 inches tall with a SCr of 0.56 mg/dL-- estimated CrCl of ~ 90 mL/min. Based on patient parameters vancomycin will be loaded with 1500mg then dosed at 1250mg q12h with a target trough of 15-20 mcg/mL. Trough will be drawn prior to the 4th dose on 11/26 @ 0330. Pharmacy will follow daily and adjust as appropriate. Thank you for the consult in the care of this patient. RWP Jeffrey Damian Nov 25, 2016 09:58
[2016-11-25] MEDS: Nystatin 100,000 Unit/mL 5 mL Suspension PO SCH ×5 (10:00→21:00)
[2016-11-25] MEDS: Calamine 177 mL Lotion TOPICAL SCH ×3 (10:20→23:07)
[2016-11-25] MEDS: Vancomycin Dose per Pharmacist XX SCH (10:20)
[2016-11-25] MEDS: cefTRIAXone Inj 2,000 MG in IV Premix 1 EACH IV SCH (10:56)
[2016-11-25] MEDS: Famotidine Inj 20 MG in IV Premix 1 EACH IV SCH ×2 (11:38→21:00)
--- NOTE | 2016-11-25 12:32 | PCM.PNMED ---
Subjective Date of Service Nov 25, 2016 Subjective pt greatly responded to abx combination, communicative AAOx1-2, denied STARR/dizziness, neck pain/back pain, c/o mild CO, mild cough, no sputum, last temp39.1 yesterday dosage adjusted by Pharmacy Exam Vital Signs Vital Sign - Last Date Time Temp Pulse Resp B/P Pulse Ox O2 Delivery O2 Flow Rate FiO2 11/25/16 10:20 Supplement Oxygen 11/25/16 06:23 37.4 86 22 129/68 96 1.00 Intake and Output 11/24/16 11/24/16 11/25/16 Cumulative From/Thru 15:00 23:00 07:00 11/17/16 18:41 - 11/25/16 06:49 Intake Total 1430 ml 1400 ml 54397 ml Output Total 651 ml Balance 1430 ml 1400 ml 03405 ml Intake Oral 0 ml 0 ml 239 ml IV Total 1430 ml 1400 ml 82655 ml Output Urine Total 651 ml # Voids 3 2 38 # Bowel Movements 0 0 8 Exam intermittent coughing, distressed no nuchal rigidity, PERRLA no JVD, MMM, no LAD RRR, nl s1, s2 no mrg coarse BS, less crackles than yesterday S,ND,NT,normoactive BS+ warm, no edema, pulses 2/2 IVs and Medications Medications Reviewed: Medications were reviewed in detail Lab and Diagnostics Result Diagram: 11/25/16 0745 11/25/16 0745 Microbiology Name: KOREY MANZANO Age/Sex: 86/M Attend Dr: Rocky Castro MD Acct: [id number] Unit: [id number] Status: PRE ER Location: SED Re11/17/16 Disch: Specimen: [id number] Collected: 11/17/16 Status: [facility] Req#: [id number] Received: 11/17/16 Source: REBECCA Cardenas Desc : Subm Dr: Rocky Castro MD Ordered: RAPID FLU IRS Comments: Collected by Nurse/Unit? Y/N Y Procedure Result Verified Site Microbiology REJI INFLUENZA RAPID AG SCREEN Final 11/17/16 RESULT POSITIVE FOR FLU A NEGATIVE FOR FLU B TIME CALLED: 1925 FLOOR/DOCTOR: RAMIREZ X-Rays, CTs and MRIs Patient Name: KOREY MANZANO MR#: [id number] Location: SED Ordering Phys: DOC, ED Date of Service: 11/17/161852 PROCEDURE: X-RAY CHEST ONE VIEW, PORTABLE ([id number]) INDICATIONS: 86 year-old male with fever and cough. TECHNIQUE: One view of the chest was acquired. COMPARISON: [facility], CR, XR CHEST 1VW (PORTABLE), 03/14/2016, 13: 00. [facility], CR, CHEST 2VW, 06/22/2014, 13:22. [facility], CR, CHEST 2VW, 06/18/2014, 15:44. FINDINGS: Surgical changes and devices: None. Lungs and pleura: No pleural effusions or pneumothorax. Lungs are clear. Mediastinum: Mediastinal contours appear normal. Heart size is normal. Bones and chest wall: No suspicious bony lesions. There is left glenohumeral joint degeneration. There is narrowing of the right acromiohumeral interval with superior humeral head migration. Overlying soft tissues appear unremarkable. IMPRESSION: No acute cardiopulmonary disease. Right shoulder rotator cuff arthropathy. Dictated by: Antione Finley M.D. on 11/17/2016 at 19:22 Approved by: Antione Finley M.D. on 11/17/2016 at 19:22 Cardiac Echo Impressions Echocardiogram Report Name: KOREY MANZANO Study Date: 06/17/2014Height: 71 in Hospital Exam Location: [facility] Weight: 193 lb Gender: Male BSA: 2.1 meters2 : 1930 Age: 84 yrs BP: 96/60 mmHg Reason For Study: CHF, SEPSIS Ordering Physician: [facility] Hospitalist Performed By: Jules Kirkland Referring Physician: Dr. Ion Benavides Interpretation Summary The left ventricle is normal in size. Left ventricular systolic function is mildly reduced. The ejection fraction is estimated to be 45%. There is basal inferior wall akinesis. The right ventricle is normal in size and function. The right ventricular systolic pressure is estimated at 33 mmHg assuming a right atrial pressure of 3 mm Hg. The left atrium is moderately dilated. Right atrial size is normal. There is moderate tricuspid regurgitation. There is no other significant valvular heart disease. The ascending aorta is mildly enlarged. Assessment & Plan This is an 86-year-old male who was brought in from a home with a fever of 101.2 and a cough. He was having increasing weakness and lethargy. He does live at a senior living and does have a CODE STATUS of DNR/DNI and comfort care only. He is unable to give us any details and is essentially alert but noncommunicative. Patient was found to have a PCR screen positive for influenza A. Chest x-ray did not show any acute cardiopulmonary disease. 6.3. Lactic acid is 1.2 which are here is 39.1. Room air sat is 96%. acute, active #Fever, leukocytosis, weakness, lethargy from sepsis secondary to Influenza A+, finished Tamiflu 75 mg by mouth twice a day for 5Dunlikely bacterial PNA, UTI, present on admission, pt keeps having intermittent high fever, ddx; S.Epididermis bacteremia vs OVEREDGE SEWER infection, -continue d5 1/2ns 80cc/hr given poor oral intake -stopped IV CFX 11/21 based on UCX-S.epididermis, mixed, likely contamination, repeat UA clean, -new abx started 11/24 CFX/Vanc/ampicillin for possible bacterial meningitis vs staph bacteremia -continue duonebs q4h prn given persistent dry cough, likely d/c upon d/c -trends procalcitonin, repeat 0.22, unlikely pt is becoming septic, # Altered level of consciousness on admission, catarino meyers septic encephalopathy + underlying cognitive impairment/hearing difficulty. this is confusing as MS greatly improved on HD2, then remained non-communicative with appropriate alertness for past 3days, finally starting to improv with abx today, etiologies unclear as described above -aggressive orientation, haldol prn for agitation -Son verified that pt is different from baseline, however, no particular expectation for improvement, unlikely agrees for invasive w/u such as LP chronic, stable # History of BPH, present on admission, chronic, continue current medications # Dementia, chronic, present on admission, stable dvt ppx: HSQ dispo:anticipate 2more days diet; STIM diet, can tolerate oral meds DNR/DNI/COMFORT CARE if needed -Will not do too many interventions patient is comfort care only per request of the patient's son Cal, who is at bedside today. His POLST form states that he is a DO NOT RESUSCITATE/DO NOT INTUBATE and comfort care only. GI Prophylaxis: H2 eren VTE Prophylaxis: Sub-Q Heparin (Unfractionated) VTE Mechanical Devices: Intermittant Pneumatic CD Resuscitation Status: DNR/DNI:Do Not Resuscitate/Intubate Time spent 35min Indy Doshi MD Nov 25, 2016 12:32
[2016-11-25 12:55] VITALS: BP 131/74; PULSE 87; RESP 22; O2SAT 91
[2016-11-25] MEDS ORDERED: 0.9% Sodium Chloride 250 ML ONE (21:11)
[2016-11-25 21:17] VITALS: BP 143/76; PULSE 93; RESP 24; O2SAT 94
[2016-11-26 00:25] VITALS: BP 115/68; PULSE 82; RESP 20; O2SAT 94
[2016-11-26] MEDS: Ampicillin Inj 2,000 MG in 0.9% Sodium Chloride 100 ML IV SCH ×6 (00:27→20:04)
[2016-11-26] MEDS ORDERED: Vancomycin Serum Trough XX ONE (03:30)
[2016-11-26 06:09] LABS: BASOPHILS % (AUTO) 0.3 % (0-3); EOSINOPHILS % (AUTO) 2.7 % (0-5); MONOCYTES % (AUTO) 15.3 % (4-12); Mean Corpuscular Hemoglobin 30.1 pg (27.0-35.0); Mean Corpuscular Volume 91.6 fL (81-100); NEUTROPHILS % (AUTO) 65.6 % (40-74); Platelet Count 247 bil/L (150-400)
--- NOTE | 2016-11-26 06:20 | NUR ---
NOC/Weeping/Fever Pt has been having weeping fluids all over body, Pt had an episode of fever around 2029, administered suppository and po acetaminophen. Pt has been afebrile since midnight. IV ABx/Fluids and medications administered as scheduled. Pt denies chest pain, sob, n/v and abd discomfort. Pt is very [place] but can understand conversation. Will continue to monitor. Addendum: 11/26/16 at 0647 by RIK HOPKINS RN IV line infiltrated. Will call IV therapy for another IV line.
[2016-11-26 06:29] VITALS: BP 117/69; PULSE 79; RESP 20; O2SAT 97
[2016-11-26 07:06] LABS: Magnesium 2.2 mg/dL (1.6-2.6); Phosphorus 2.9 mg/dL (2.5-4.9)
[2016-11-26 08:00] VITALS: PULSE 95; RESP 20; O2SAT 95
[2016-11-26] MEDS: Vancomycin Dose per Pharmacist XX SCH (08:30)
[2016-11-26] MEDS: Calamine 177 mL Lotion TOPICAL SCH ×3 (08:36→22:54)
[2016-11-26] MEDS: Nystatin 100,000 Unit/mL 5 mL Suspension PO SCH ×5 (08:36→22:00)
[2016-11-26] MEDS: cefTRIAXone Inj 2,000 MG in IV Premix 1 EACH IV SCH (09:24)
[2016-11-26] MEDS: Famotidine Inj 20 MG in IV Premix 1 EACH IV SCH ×2 (10:10→20:56)
--- NOTE | 2016-11-26 10:31 | NUR ---
Social Work-readiness for discharge: Data:EMR reviewed. Pt is on day 9 of hospitalization for influenza A per H&P. Pt is not medically stable, but anticipate another 1-2 days. PT continues to recommend SNF placement, pt is a 2 person Max assist. Pt continues to have fevers, MD to order ID to see pt. Pt has been accepted at [facility] with Dr. Allison to follow. Paperwork and PASRR in the chart. SW will continue to follow. Assessment:Pt who would benefit from SNF. Plan:Pt to discharge to [facility] with Dr. Allison to follow. Paperwork and PASRR in the chart. SW will continue to follow. TAMIE Malin Addendum: 11/26/16 at 1542 by RIOS CHAUDRHY SS VINAY updated the [facility] is currently full. VINAY spoke with Son Brendan who is agreeable to referral to [facility] [place] and [facility]. VINAY faxed PASRR and facesheet and provided access. VINAY will continue to follow. TAMIE Malin
[2016-11-26] MEDS: Heparin 5,000 Unit/mL Inj SUBQ SCH (11:57)
--- NOTE | 2016-11-26 12:48 | PCM.PNMED ---
Subjective Date of Service Nov 26, 2016 Subjective pt is back to somnolent state, not answer to questions but followed simple commands significantly less cough day by day, no wheezing no grimace on abd exam Exam Vital Signs Vital Sign - Last Date Time Temp Pulse Resp B/P Pulse Ox O2 Delivery O2 Flow Rate FiO2 11/26/16 08:36 Supplement Oxygen 11/26/16 08:00 95 20 95 1.00 11/26/16 06:29 37.1 117/69 Intake and Output 11/25/16 11/25/16 11/26/16 Cumulative From/Thru 15:00 23:00 07:00 11/17/16 18:41 - 11/26/16 00:30 Intake Total 174 ml 27201 ml Output Total 651 ml Balance 174 ml 69974 ml Intake Oral 0 ml 239 ml IV Total 174 ml 89918 ml Output Urine Total 651 ml # Voids 4 42 # Bowel Movements 1 9 Exam intermittent coughing,comfortable no nuchal rigidity, PERRLA no JVD, MMM, no LAD RRR, nl s1, s2 no mrg coarse BS, less crackles than yesterday S,ND,NT,normoactive BS+ warm, no edema, pulses 2/2 IVs and Medications Medications Reviewed: Medications were reviewed in detail Lab and Diagnostics Result Diagram: 11/26/16 0545 11/26/16 0545 Microbiology Name: KOREY MANZANO Age/Sex: 86/M Attend Dr: Rocky Castro MD Acct: [id number] Unit: [id number] Status: PRE ER Location: SED Re11/17/16 Disch: Specimen: [id number] Collected: 11/17/16 Status: BERHANE Req#: [id number] Received: 11/17/16 Source: NSP Sp Desc : Subm Dr: Rocky Castro MD Ordered: RAPID FLU IRS Comments: Collected by Nurse/Unit? Y/N Y Procedure Result Verified Site Microbiology REJI INFLUENZA RAPID AG SCREEN Final 11/17/16 RESULT POSITIVE FOR FLU A NEGATIVE FOR FLU B TIME CALLED: 1925 FLOOR/DOCTOR: RAMIREZ X-Rays, CTs and MRIs Patient Name: KOREY MANZANO MR#: [id number] Location: SED Ordering Phys: DOC, ED Date of Service: 11/17/161852 PROCEDURE: X-RAY CHEST ONE VIEW, PORTABLE ([id number]) INDICATIONS: 86 year-old male with fever and cough. TECHNIQUE: One view of the chest was acquired. COMPARISON: [facility], CR, XR CHEST 1VW (PORTABLE), 03/14/2016, 13: 00. [facility], CR, CHEST 2VW, 06/22/2014, 13:22. [facility], CR, CHEST 2VW, 06/18/2014, 15:44. FINDINGS: Surgical changes and devices: None. Lungs and pleura: No pleural effusions or pneumothorax. Lungs are clear. Mediastinum: Mediastinal contours appear normal. Heart size is normal. Bones and chest wall: No suspicious bony lesions. There is left glenohumeral joint degeneration. There is narrowing of the right acromiohumeral interval with superior humeral head migration. Overlying soft tissues appear unremarkable. IMPRESSION: No acute cardiopulmonary disease. Right shoulder rotator cuff arthropathy. Dictated by: Antione Finley M.D. on 11/17/2016 at 19:22 Approved by: Antione Finley M.D. on 11/17/2016 at 19:22 Cardiac Echo Impressions Echocardiogram Report Name: KOREY MANZAON Study Date: 06/17/2014Height: 71 in Hospital Exam Location: [facility] Weight: 193 lb Gender: Male BSA: 2.1 meters2 : 1930 Age: 84 yrs BP: 96/60 mmHg Reason For Study: CHF, SEPSIS Ordering Physician: [facility] Hospitalist Performed By: Jules Kirkland Referring Physician: Dr. Ion Benavides Interpretation Summary The left ventricle is normal in size. Left ventricular systolic function is mildly reduced. The ejection fraction is estimated to be 45%. There is basal inferior wall akinesis. The right ventricle is normal in size and function. The right ventricular systolic pressure is estimated at 33 mmHg assuming a right atrial pressure of 3 mm Hg. The left atrium is moderately dilated. Right atrial size is normal. There is moderate tricuspid regurgitation. There is no other significant valvular heart disease. The ascending aorta is mildly enlarged. Assessment & Plan This is an 86-year-old male who was brought in from a home with a fever of 101.2 and a cough. He was having increasing weakness and lethargy. He does live at a alf and does have a CODE STATUS of DNR/DNI and comfort care only. He is unable to give us any details and is essentially alert but noncommunicative. Patient was found to have a PCR screen positive for influenza A. Chest x-ray did not show any acute cardiopulmonary disease. 6.3. Lactic acid is 1.2 which are here is 39.1. Room air sat is 96%. acute, active #Fever, leukocytosis, weakness, lethargy from sepsis secondary to Influenza A+, finished Tamiflu 75 mg by mouth twice a day for 5Dunlikely bacterial PNA, UTI, present on admission, pt keeps having intermittent high fever-last temp1/8, ddx ; S.Epididermis bacteremia vs [employer] infection, -appreciate ID input today -continue d5 1/2ns 80cc/hr given po or oral intake -stopped IV CFX 11/21 based on UCX-S.epididermis, mixed, likely contamination, repeat UA clean, -new abx started 11/24 CFX/Vanc/ampicillin for possible bacterial meningitis vs staph bacteremia -continue duonebs q4h prn given persistent dry cough, likely d/c upon d/c -trends procalcitonin, repeat 0.22, unlikely pt is becoming septic, # Altered level of consciousness on admission, catarino meyers septic encephalopathy + underlying cognitive impairment/hearing difficulty. this is confusing as MS greatly improved on HD2, then remained non-communicative with appropriate alertness for past 3days, finally starting to improv with abx 11/25 but wax and wane, etiologies unclear as described above -aggressive orientation, haldol prn for agitation -Son verified that pt is different from baseline, however, no particular expectation for improvement, unlikely agrees for invasive w/u such as LP chronic, stable # History of BPH, present on admission, chronic, continue current medications # Dementia, chronic, present on admission, stable dvt ppx: HSQ dispo:pending, likely 2-3more days until see more improvement diet; STIM diet, can tolerate oral meds DNR/DNI/COMFORT CARE if needed -Will not do too many interventions patient is comfort care only per request of the patient's son Cal, who is at bedside today. His POLST form states that he is a DO NOT RESUSCITATE/DO NOT INTUBATE and comfort care only. GI Prophylaxis: H2 eren VTE Prophylaxis: Sub-Q Heparin (Unfractionated) VTE Mechanical Devices: Intermittant Pneumatic CD Resuscitation Status: DNR/DNI:Do Not Resuscitate/Intubate Time spent 35min Indy Doshi MD Nov 26, 2016 12:48
[2016-11-26 14:12] VITALS: BP 113/71; PULSE 90; RESP 20; O2SAT 97
[2016-11-26] MEDS: Dextrose 5% 0.45% NaCl 1,000 ML IV SCH (16:00)
--- NOTE | 2016-11-26 18:22 | CONS ---
[address] [address] CONSULTATION REPORT PATIENT: KOREY MANZANO : 1930 MR#: [id number] ADMIT: 11/17/2016 JOB ID: [id number] DATE OF SERVICE: 11/26/[address] Doshi for this timely consult. REASON FOR CONSULTATION: Fevers following influenza A. HISTORY OF PRESENT ILLNESS: The patient is an 86-year-old gentleman with some underlying dementia as well as mobility issues and bladder cancer. He has been living in an assisted living facility in the [facility] ever since April when he became too ill to stay at home with his adult son. The patient has been doing relatively well but was admitted to this facility starting with an ED visit on November 17 and admission on for a variety of complaints but particularly weakness, cough and malaise. He was found to have influenza A and was placed on oseltamivir which was continued between November 19 and . On this therapy, he improved with resolution of his admission fever as well as some overall improvement but, unfortunately, starting on November 23, he began to have fevers about one time a day. This led to concerns about possible nosocomial pneumonia, meningitis, encephalitis or urinary tract infection and the patient was started on broad-spectrum antibiotics including ampicillin, ceftriaxone and vancomycin on November 24 and . ID consultation is requested at this point regarding whether the patient might have underlying secondary infection beyond his influenza A. This afternoon, we interviewed the patient in his room with his son present. The patient is not completely oriented but is certainly able to answer questions and, in fact, is able to joke around a bit and give a few insightful answers to questions. At this point, he says he continues to have a cough which he properly labels as nonproductive. He denies having any more fevers or chills. He denies having any sore throat, and he has no significant GI symptoms at all. He does not have a Forde catheter and does not use one at the assisted living facility. PAST MEDICAL HISTORY: 1. Dementia which seems to be reasonably mild. 2. History of multiple issues including bladder cancer and nephrolithiasis. 3. Organic heart disease. a. SVT. b. Congestive heart failure. c. History of AFib. 4. History of spinal stenosis. 5. History of AAA. SOCIAL HISTORY: The patient is a lifelong nonsmoker and nondrinker who lives in an assisted living facility in [facility]. FAMILY HISTORY: Noncontributory and probably irrelevant in this 86-year-old. REVIEW OF SYSTEMS: Was done insofar as we could do a complete review of systems given the patient's perhaps mild dementia. At this point, he denies any headache, no change in vision, no sore throat or dysphagia. He has no productive cough though he does have a nonproductive cough. No chest pain. No fevers, chills, sweats. No abdominal pain, nausea, vomiting, or diarrhea. No problems with the lower extremities though he is weak and requires assistance and a walker to get around even on good days. PHYSICAL EXAMINATION: Reveals an afebrile gentleman, temp 37.1, pulse 95, respiratory rate 20, blood pressure 117/69, saturating 95% on 1 L. Examination of the head reveals no temporal wasting. Eyes without conjunctivitis. Nose normal. Oral cavity with a coated tongue but no thrush or pharyngitis. Neck is not supple per se but he is certainly able to bend his chin forward and touch it to an examiner's hand without any pain or limitation. Lungs are notable for decreased air flow and a few wheezes bilaterally but no focality. Cardiac tones: Regular rate and rhythm without significant murmur. Patient's abdomen is soft and nontender without organomegaly or ascites. He is wearing a diaper. He does not have suprapubic fullness or a Forde catheter. His knee joints are hypertrophied and appearance would suggest bilateral pretty severe degenerative joint disease in the knees at least. There is no evidence for cellulitis. He does have a bit of edema in his legs but not severe. Upper extremities are free of any signs of thrombophlebitis. LABORATORIES: Include white count 7100, pretty normal differential at this point, a creatinine 0.57. LFTs normal. Procalcitonin was 2.23 back on November 21. It is now down to 0.17. Urinalysis throughout this admission has shown pyuria. Initially he had 11-50 white cells on November 18 and again on November 21, more recently on November 22 just 6 to 10 white cells. Urine cultures include a coag-negative staph with some mixed anaid on the culture from the . Of more interest is an Enterococcus faecalis which was ampicillin sensitive and was isolated on the . Repeat on the just grew mixed urogenital anaid. Blood cultures negative. IMAGING: Has included three basically clear chest x-rays. IMPRESSION: It seems clear that this patient presented with influenza A and he has been treated appropriately. He defervesced and was apparently improving until he developed recrudescent fevers on November 23, and . I think the most likely explanation for this is an Enterococcal urinary tract infection, though I am not completely sold on the diagnosis due to the absence of symptoms, but nonetheless would seem to be the most reasonable explanation. The patient appears quite comfortable and nontoxic and has a normal white count and procalcitonin at this point, so I suspect this is more of a lower urinary tract infection perhaps with some low-grade fever rather than a more significant process. RECOMMENDATIONS: 1. I would go ahead and stop the IV ceftriaxone and Vanco the patient has been receiving as I do not think there is any particular indication for those. 2. Will continue with the ampicillin IV until tomorrow, but I think if he is doing well we could talk about switching that to oral in preparation for discharge in the very near future with the plan to treat with oral amoxicillin for a week or so. 3. If his fevers persist and do not appear to be due to this enterococcal UTI as time goes on, additional investigations such as a CT of the chest, abdomen, and pelvis may be indicated, but I suspect his fevers will simply resolve with passage of time and continued ampicillin to be followed by amoxicillin. Thank you very much for this consult.
[2016-11-26 21:59] VITALS: BP 122/71; PULSE 91; RESP 20; O2SAT 95
[2016-11-27] MEDS: Heparin 5,000 Unit/mL Inj SUBQ SCH ×3 (00:50→22:18)
[2016-11-27] MEDS: Ampicillin Inj 2,000 MG in 0.9% Sodium Chloride 100 ML IV SCH ×5 (00:50→20:43)
[2016-11-27] MEDS: Dextrose 5% 0.45% NaCl 1,000 ML IV SCH ×2 (04:55→14:36)
[2016-11-27] MEDS: Nystatin 100,000 Unit/mL 5 mL Suspension PO SCH ×5 (06:00→22:18)
[2016-11-27 06:43] VITALS: BP 125/78; PULSE 93; RESP 20; O2SAT 93
[2016-11-27 06:57] LABS: BASOPHILS % (AUTO) 0.2 % (0-3); EOSINOPHILS % (AUTO) 4.7 % (0-5); Mean Corpuscular Volume 91.8 fL (81-100); NEUTROPHILS % (AUTO) 61.8 % (40-74); Platelet Count 270 bil/L (150-400)
[2016-11-27 07:20] LABS: Magnesium 2.2 mg/dL (1.6-2.6); Phosphorus 2.7 mg/dL (2.5-4.9)
--- NOTE | 2016-11-27 08:45 | NUR ---
[facility] can accept with Dr. Cuevas to follow. TAMIE Malin
[2016-11-27] MEDS: Famotidine Inj 20 MG in IV Premix 1 EACH IV SCH ×2 (10:39→22:18)
[2016-11-27] MEDS: Calamine 177 mL Lotion TOPICAL SCH ×3 (10:39→22:27)
--- NOTE | 2016-11-27 11:21 | PROG NOTE ---
[address] [address] PROGRESS NOTE PATIENT: KOREY MANZANO : 1930 MR#: [id number] ADMIT: 11/17/2016 JOB ID: [id number] DATE: 11/27/2016 INFECTIOUS DISEASE FOLLOW UP NOTE: REASON FOR FOLLOWUP: Enterococcal urinary tract infection as well as influenza. INTERVAL HISTORY: The patient has no new complaints this morning. He continues to be somewhat laconic but when asked questions denies complaints. Specifically denies fevers, chills or increasing shortness of breath. He has no Forde catheter. PHYSICAL EXAMINATION: Reveals an afebrile gentleman, temperature was 37.7 last night. He is afebrile this morning at 37.2, pulse 93, respiratory rate 20, blood pressure 125/78, saturating well on 2 L. He is awake and answers some questions appropriately though briefly. Oral cavity negative. Lungs are relatively clear anteriorly. Cardiac tones without new murmur. Abdomen soft and nontender. He is wearing a diaper. No suprapubic tenderness. Does not have a Forde. No skin rash noted. LABORATORIES: Include white count which continues to be normal at 5600 with normal differential. Creatinine 0.59. LFTs normal. Procalcitonin is down to 0.17, which is a 10 fold drop from 2.23 when he came in. Urinalysis with 6-10 white cells most recently. Cultures were positive in terms of Enterococcus in the urine and he also had influenza which has been treated. IMPRESSION: This patient seems to be doing well with respect to both his influenza which is largely resolved as well as his enterococcal urinary tract infection which I think is the cause of his recrudescent fevers. At this point, I think the patient could be transitioned to oral therapy and made ready for discharge at any time. RECOMMENDATIONS: 1. Will lower the dose of ampicillin from 2 g q.4 to 2 g q.6. 2. At any point I think the patient could be switched to an oral suspension of amoxicillin 500 mg p.o. q.8 to finish 10 days of therapy for his complex enterococcal UTI. 3. ID will see this patient again on November 29 if he is still here but I think it is not unreasonable to start to make arrangements for his discharge on the oral amoxicillin regimen assuming he continues to be stable and afebrile.
[2016-11-27 11:58] VITALS: PULSE 93; RESP 16; O2SAT 94
[2016-11-27 12:29] VITALS: BP 115/65; PULSE 83; RESP 24; O2SAT 95
--- NOTE | 2016-11-27 13:51 | NUR ---
NUTRITION FOLLOW-UP: ASSESS: 86 yo M admitted for Influenza A. Pt has been on a NPO or Stimulation diet now x [address] and they will be advancing pt diet today to pureed, pudding thick per their last eval recommendations on 11/22/16. Pt has been eating 100% of stimulation diet. PMHX: dementia and bladder cancer LABS: Reviewed. Cr 0.59, Glu 119, Ca 8.2, Alb 2.7. MEDS: Reviewed. GI: BM x 2 (11/27) CURRENT WTS: 86.2 kg, BMI 25.8 kg/m2 DIET: Pureed, pudding thick liquids with 1:1 feed. EST. NEEDS: Kcals: 4946-2984 kcal/day (25-30 kcal/kg) Pro: 85-100 g/day (1.0-1.2 g/kg) NUTRITION DIAGNOSIS: 1.) Inadequate oral intake related to decreased ability to consume sufficient energy as evidenced by need for stimulation diet due to dementia--PERSISTS 2.) Chew/swallow difficulty related to dementia as evidence by need for stimulation diet with no liquids per ST--IMPROVING, DIET SHOULD BE ADVANCED TODAY. NUTRITION INTERVENTION: 1.) ST to advance diet to pureed, pudding thick liquids with 1:1 feeds. 2.) If po intake is inadequate to meet pt est. needs after diet advancement, consider adding supplements to improve po intake. MONITOR / EVAL: PO intake, labs, weights, nutrition status. Continue to follow per moderate nutrition risk guidelines.
--- NOTE | 2016-11-27 16:59 | PCM.PNMED ---
Subjective Date of Service Nov 27, 2016 Subjective pt responded slow but clearly communicative, still intermittent coughing Exam Vital Signs Vital Sign - Last Date Time Temp Pulse Resp B/P Pulse Ox O2 Delivery O2 Flow Rate FiO2 11/27/16 12:29 36.8 83 24 115/65 95 Room Air 11/27/16 06:43 2.00 Intake and Output 11/26/16 11/26/16 11/27/16 Cumulative From/Thru 15:00 23:00 07:00 11/17/16 18:41 - 11/27/16 05:08 Intake Total 0 ml 659 ml 828 ml 78327 ml Output Total 651 ml Balance 0 ml 659 ml 828 ml 51175 ml Intake Oral 0 ml 0 ml 239 ml IV Total 659 ml 828 ml 32693 ml Output Urine Total 651 ml # Voids 1 3 46 # Bowel Movements 1 1 11 Exam intermittent coughing,comfortable no nuchal rigidity, PERRLA no JVD, MMM, no LAD RRR, nl s1, s2 no mrg coarse BS, less crackles than yesterday S,ND,NT,normoactive BS+ warm, no edema, pulses 2/2 IVs and Medications Medications Reviewed: Medications were reviewed in detail Lab and Diagnostics Result Diagram: 11/27/1661411/27/16614 Microbiology Name: KOREY MANZANO Age/Sex: 86/M Attend Dr: Rocky Castro MD Acct: [id number] Unit: [id number] Status: PRE ER Location: SED Re11/17/16 Disch: Specimen: [id number] Collected: 11/17/16 Status: BERHANE Req#: [id number] Received: 11/17/16 Source: NSP Sp Desc : Subm Dr: Rocky Castro MD Ordered: RAPID FLU IRS Comments: Collected by Nurse/Unit? Y/N Y Procedure Result Verified Site Microbiology REJI INFLUENZA RAPID AG SCREEN Final 11/17/16 RESULT POSITIVE FOR FLU A NEGATIVE FOR FLU B TIME CALLED: 1925 FLOOR/DOCTOR: RAMIREZ X-Rays, CTs and MRIs Patient Name: KOREY MANZANO MR#: [id number] Location: [facility] Ordering Phys: DOC, ED Date of Service: 11/17/161852 PROCEDURE: X-RAY CHEST ONE VIEW, PORTABLE ([id number]) INDICATIONS: 86 year-old male with fever and cough. TECHNIQUE: One view of the chest was acquired. COMPARISON: [facility], CR, XR CHEST 1VW (PORTABLE), 03/14/2016, 13: 00. [facility], CR, CHEST 2VW, 06/22/2014, 13:22. [facility], CR, CHEST 2VW, 06/18/2014, 15:44. FINDINGS: Surgical changes and devices: None. Lungs and pleura: No pleural effusions or pneumothorax. Lungs are clear. Mediastinum: Mediastinal contours appear normal. Heart size is normal. Bones and chest wall: No suspicious bony lesions. There is left glenohumeral joint degeneration. There is narrowing of the right acromiohumeral interval with superior humeral head migration. Overlying soft tissues appear unremarkable. IMPRESSION: No acute cardiopulmonary disease. Right shoulder rotator cuff arthropathy. Dictated by: Antione Finley M.D. on 11/17/2016 at 19:22 Approved by: Antione Finley M.D. on 11/17/2016 at 19:22 Cardiac Echo Impressions Echocardiogram Report Name: KOREY MANZANO Study Date: 06/17/2014Height: 71 in Hospital Exam Location: [facility] Weight: 193 lb Gender: Male BSA: 2.1 meters2 : 1930 Age: 84 yrs BP: 96/60 mmHg Reason For Study: CHF, SEPSIS Ordering Physician: [facility] Hospitalist Performed By: Jules Kirkland Referring Physician: Dr. Ion Benavides Interpretation Summary The left ventricle is normal in size. Left ventricular systolic function is mildly reduced. The ejection fraction is estimated to be 45%. There is basal inferior wall akinesis. The right ventricle is normal in size and function. The right ventricular systolic pressure is estimated at 33 mmHg assuming a right atrial pressure of 3 mm Hg. The left atrium is moderately dilated. Right atrial size is normal. There is moderate tricuspid regurgitation. There is no other significant valvular heart disease. The ascending aorta is mildly enlarged. Assessment & Plan This is an 86-year-old male who was brought in from a home with a fever of 101.2 and a cough. He was having increasing weakness and lethargy. He does live at a [facility] and does have a CODE STATUS of DNR/DNI and comfort care only. He is unable to give us any details and is essentially alert but noncommunicative. Patient was found to have a PCR screen positive for influenza A. Chest x-ray did not show any acute cardiopulmonary disease. 6.3. Lactic acid is 1.2 which are here is 39.1. Room air sat is 96%. acute, active #Fever, leukocytosis, weakness, lethargy, present on admission, from sepsis secondary to Influenza A+ and enterococcus UTI, pt finished Tamiflu 75 mg by mouth twice a day for 5D, initially pt was treated for UTI but stopped IV CFX on 11/21 based on UCX-S.epididermis, mixed, likely it was contamination and Repeat UA clean, As pt kept having intermittent high fever with persistent somnolence, new abx started 11/24 CFX/Vanc/ampicillin for possible bacterial meningitis vs staph bacteremia. ID consulted, Follow up UCX showed enterococcus on 11/21 which could explain fever, decided to treat enterococcus UTI with ampicillin. Other abx were dropped. -plan is to d/c with amoxicillin 500 mg p.o. q.8 to finish 10 days tomorrow per ID -continue d5 1/2ns 80cc/hr given poor oral intake # Altered level of consciousness on admission, likely septic encephalopathy from UTI, underlying cognitive impairment/hearing difficulty. this was confusing as MS greatly improved on HD2, then remained non-communicative with appropriate alertness for past several days, finally starting to improve with abx /8 but wax and wane, expect to improve further as UTI being treated. -aggressive orientation, haldol prn for agitation chronic, stable # History of BPH, present on admission, chronic, continue current medications # Dementia, chronic, present on admission, stable dvt ppx: HSQ dispo:SNF tomorrow if remains stable diet; STIM diet, can tolerate oral meds DNR/DNI/COMFORT CARE if needed per POLST GI Prophylaxis: H2 eren VTE Prophylaxis: Sub-Q Heparin (Unfractionated) VTE Mechanical Devices: Intermittant Pneumatic CD Resuscitation Status: DNR/DNI:Do Not Resuscitate/Intubate Time spent 35min Indy Doshi MD Nov 27, 2016 16:59
--- NOTE | 2016-11-27 18:31 | NUR ---
Afebrile this shift, activity and mentation No fevers seen this shift. Tylenol admin x1 for pain in joints when turning. Pt assisting with turning in bed. Slightly confused responses, delayed d/t [place].
[2016-11-27 21:48] VITALS: BP 119/72; PULSE 78; RESP 22; O2SAT 94
[2016-11-27] MEDS ORDERED: 0.9% Sodium Chloride 250 ML ONE (23:47)
[2016-11-28] MEDS: Ampicillin Inj 2,000 MG in 0.9% Sodium Chloride 100 ML IV SCH ×3 (02:36→14:16)
[2016-11-28] MEDS: Dextrose 5% 0.45% NaCl 1,000 ML IV SCH (02:36)
[2016-11-28] MEDS: Calamine 177 mL Lotion TOPICAL SCH (06:14)
[2016-11-28] MEDS: Nystatin 100,000 Unit/mL 5 mL Suspension PO SCH ×3 (06:14→14:15)
[2016-11-28 06:27] VITALS: BP 130/67; PULSE 70; RESP 20; O2SAT 94
[2016-11-28 07:11] LABS: BASOPHILS % (AUTO) 0.2 % (0-3); EOSINOPHILS % (AUTO) 4.1 % (0-5); MONOCYTES % (AUTO) 10.5 % (4-12); Mean Corpuscular Hemoglobin 29.9 pg (27.0-35.0); Mean Corpuscular Volume 92.2 fL (81-100); NEUTROPHILS % (AUTO) 60.5 % (40-74); Platelet Count 283 bil/L (150-400)
--- NOTE | 2016-11-28 07:21 | NUR ---
Confusion Pt appears confused,very hard of hearing with hearing aids, does not answer questions meaningfully even with written. But calm, pleasant, cooperative. Reoriented pt frequently.
[2016-11-28 07:36] LABS: Magnesium 2.2 mg/dL (1.6-2.6); Phosphorus 2.5 mg/dL (2.5-4.9)
[2016-11-28] MEDS: Famotidine Inj 20 MG in IV Premix 1 EACH IV SCH (09:38)
[2016-11-28] MEDS: Heparin 5,000 Unit/mL Inj SUBQ SCH (09:41)
--- NOTE | 2016-11-28 10:53 | NUR ---
[facility] can accept with Dr. Knight to follow. TAMIE Malin
--- NOTE | 2016-11-28 13:59 | PCM.DIMED ---
Discharge Instructions Date of Service Nov 28, 2016 Dates of Hospitalization Nov 17, 2016 at 21:29 Discharge Diagnosis Discharge Diagnosis Influenza A and Enterococcal UTI Diet Other (Per [facility]) Activity Other (Per Physical Therapy) Call your provider Fever or Chills, Shortness of breath, Bleeding, Chest pain, Vomitting, Excessive diarrhea, Weakness (unilateral), Other Patient Instructions Follow-up Provider: Jennifer Benavides MD Follow-up with PCP in: 1 week Jim Rodrigues MD Nov 28, 2016 13:58
[2016-11-28] MEDS ORDERED: IPRA3AMP NEB (14:06)
[2016-11-28] MEDS ORDERED: AMOX500C2 PO (14:06)
[2016-11-28] MEDS ORDERED: POLY17PO6 PO (14:06)
[2016-11-28] MEDS ORDERED: SENN-133 PO (14:06)
[2016-11-28] MEDS ORDERED: NYST1000 PO (14:06)
[2016-11-28] MEDS ORDERED: HEPA500017 SUBQ (14:06)
[2016-11-28] MEDS ORDERED: Acetaminophen RECTAL (14:06)
--- NOTE | 2016-11-28 15:36 | NUR ---
Social Work-discharge: Data:EMR Reviewed. Pt is on day 11 of hospitalization for influenza A per H&P. Pt is medically stable for discharge today. [facility] full. VINAY called [facility] and they have a spot for pt today. PT continues to recommend SNF, pt a 2 person max assist. VINAY faxed orders and created packet. VINAY and UR specialist looked at chart and feel like pt meets criteria to go BLS. VINAY scheduled BLS for 1545 with [facility].VINAY updated pt's son Cal of discharge to [facility], he is agreeable to plan. VINAY explained to son that SW cannot guarantee that insurance will cover the cost of transport, son agreeable to proceed. VINAY updated Alexandra at [facility] of discharge time. RN,UC,pt/family, and [facility] all updated and agreeable to plan. Assessment:PT who would benefit form SNF. Plan: Pt to discharge to [facility] today via BLS at 1345. RN,UC,pt/family, and [facility] all updated and agreeable to plan. Ting Cabrera,TAMIE
--- NOTE | 2016-11-28 15:59 | NUR ---
Discharge Pt discharged to [facility] via BLS, with son Cal at side. Report was given to Public Policy Coordinator, attempted to call [facility] a couple of times no one would answer.
--- NOTE | 2016-11-29 00:36 | PCM.DC.MED ---
Discharge Summary Date of Service Nov 28, 2016 Dates of Hospitalization Date of Hospital Admission Nov 17, 2016 at 21:29 Date of Discharge: Nov 28, 2016 Providers: Admitting Physician: Mayte Kwong MD Primary Care Physician: Jennifer Benavides MD Attending Physician: Mayte Kwong MD Diagnosis at Time of Discharge Diagnosis at Time of Discharge Influenza A and Enterococcal UTI Consultations Loss of infectious disease. Procedures XRay, CTs & MRIs Patient Name: KOREY MANZANO MR#: [id number] Location: [facility] Ordering Phys: SAILAJA LEBRON MD Date of Service: 11/17/16 1853 PROCEDURE: X-RAY CHEST ONE VIEW, PORTABLE ([id number]) INDICATIONS: 86 year-old male with fever and cough. TECHNIQUE: One view of the chest was acquired. COMPARISON: [facility], CR, XR CHEST 1VW (PORTABLE), 03/14/2016, 13: 00. [facility], CR, CHEST 2VW, 06/22/2014, 13:22. [facility], CR, CHEST 2VW, 06/18/2014, 15:44. FINDINGS: Surgical changes and devices: None. Lungs and pleura: No pleural effusions or pneumothorax. Lungs are clear. Mediastinum: Mediastinal contours appear normal. Heart size is normal. Bones and chest wall: No suspicious bony lesions. There is left glenohumeral joint degeneration. There is narrowing of the right acromiohumeral interval with superior humeral head migration. Overlying soft tissues appear unremarkable. IMPRESSION: No acute cardiopulmonary disease. Right shoulder rotator cuff arthropathy. Dictated by: Antione Finley M.D. on 11/17/2016 at 19:22 Approved by: Antione Finley M.D. on 11/17/2016 at 19:22 Cardiac Echo Impression Echocardiogram Report Name: KOREY MANZANO Study Date: 06/17/2014Height: 71 in Hospital Exam Location: [facility] Weight: 193 lb Gender: Male BSA: 2.1 meters2 : 1930 Age: 84 yrs BP: 96/60 mmHg Reason For Study: CHF, SEPSIS Ordering Physician: [facility] Hospitalist Performed By: Jules Kirkland Referring Physician: Dr. Ion Benavides Interpretation Summary The left ventricle is normal in size. Left ventricular systolic function is mildly reduced. The ejection fraction is estimated to be 45%. There is basal inferior wall akinesis. The right ventricle is normal in size and function. The right ventricular systolic pressure is estimated at 33 mmHg assuming a right atrial pressure of 3 mm Hg. The left atrium is moderately dilated. Right atrial size is normal. There is moderate tricuspid regurgitation. There is no other significant valvular heart disease. The ascending aorta is mildly enlarged. Brief History This is an 86-year-old male who was brought in from the [facility] with a fever of 101.2 and a cough. He was having increasing weakness and lethargy. He does live at a alf and does have a CODE STATUS of DNR/DNI and comfort care only. He is unable to give us any details and is essentially alert but noncommunicative. Patient was found to have a PCR screen positive for influenza A. Chest x-ray did not show any acute cardiopulmonary disease. 6.3. Lactic acid is 1.2 which are here is 39.1. Room air sat is 96%. Patient was admitted to the hospital service for further evaluation and treatment. Hospital Course This is an 86-year-old male who was brought in from a home with a fever of 101.2 and a cough. He was having increasing weakness and lethargy. He does live at a alf and does have a CODE STATUS of DNR/DNI and comfort care only. He is unable to give us any details and is essentially alert but noncommunicative. Patient was found to have a PCR screen positive for influenza A. Chest x-ray did not show any acute cardiopulmonary disease. 6.3. Lactic acid is 1.2 which are here is 39.1. Room air sat is 96%. Patient was admitted to the hospital service for further evaluation and treatment. acute, active # Fever, leukocytosis, weakness, lethargy, present on admission, from sepsis secondary to Influenza A+ and enterococcus UTI, pt finished Tamiflu 75 mg by mouth twice a day for 5D, initially pt was treated for UTI but stopped IV CFX on 11/21 based on UCX-S.epididermis, mixed, likely it was contamination and Repeat UA clean, As pt kept having intermittent high fever with persistent somnolence, new abx started 11/24 CFX/Vanc/ampicillin for possible bacterial meningitis vs staph bacteremia. ID consulted, Follow up UCX showed enterococcus on 11/21 which could explain fever, decided to treat enterococcus UTI with ampicillin. Other abx were dropped. -plan is to d/c with amoxicillin 500 mg p.o. q.8 to finish 14 days total. Will discharge home today # Altered level of consciousness on admission, likely septic encephalopathy from UTI, underlying cognitive impairment/hearing difficulty. this was confusing as MS greatly improved on HD2, then remained non-communicative with appropriate alertness for past several days, finally starting to improve with abx 11/25 but wax and wane, expect to improve further as UTI being treated. -aggressive orientation, haldol prn for agitation chronic, stable # History of BPH, present on admission, chronic, continue current medications # Dementia, chronic, present on admission, stable dvt ppx: HSQ dispo: Discharged to half-way facility today. diet; STIM diet, can tolerate oral meds DNR/DNI/COMFORT CARE if needed per POLST Exam Vital Signs (Last) Date Time Temp Pulse Resp B/P Pulse Ox O2 Delivery O2 Flow Rate FiO2 11/28/16 09:48 Supplement Oxygen 11/28/16 06:27 37.3 70 20 130/67 94 11/27/16 06:43 2.00 Exam General: Patient is much more alert and fully responsive. However, he remains quite confused. HEENT: Head is atraumatic normocephalic. Eyes: Pupils are equally round and reactive to light and accommodation. Extraocular muscles are unable to be tested. Sclera are white anicteric. Subconjunctival mucosa is pink. Ears and nose are unremarkable. Oropharynx: There is no mucosal lesions, there is no thrush, there is no pharyngitis. Neck: Is supple, there are no nodes, or masses, or tenderness. Chest: Is clear to auscultation and percussion. There are no rales, rhonchi, wheezes or rubs. Heart: Rate, rhythm is regular. There is no murmur, rub or gallop. Abdomen: Good bowel sounds are present. Abdomen is soft, nontender, no organomegaly or masses were appreciated. Extremities: Are symmetrical and well perfused. There is no edema, there is no cellulitis, no rash. Neurologic: There are no focal neurological deficits. Cranial nerves II through XII are intact. There are no sensory or motor deficits. Psychiatric: Patients mood is calm and shows no sign of agitation other than he wants to get out of bed. He continues to ask to do so. Genital: Deferred Rectal: Deferred Test 11/17/16 19:25 11/17/16 23:35 11/18/16 04:05 11/20/16 05:35 Lactic Acid Level 1.2mmol/L (0.4-2.0) Hemoglobin A1c 5.8% (4.8-5.6) Troponin T 0.036ug/L (0.0-0.011) Prealbumin 10mg/dL (20-40) Test 11/22/16 06:41 11/26/16 03:45 11/26/16 05:45 11/28/16 06:30 Urine Color Straw (YELLOW) Urine Appearance Clear (CLEAR,HAZY) Urine pH 7.0 (5.0-8.0) Urine Specific [place] 1.010 (1.003-1.035) Urine Protein Negativemg/dL (NEG,TRACE) Urine Glucose (UA) Negativemg/dL (NEGATIVE) Urine Ketones Negativemg/dL (NEGATIVE) Urine Occult Blood Small (NEGATIVE) Urine Nitrite Negative (NEGATIVE) Urine Bilirubin Negative (NEGATIVE) Urine Urobilinogen Normalmg/dL (NORMAL) Urine Leukocyte Esterase Trace (NEGATIVE) Urine RBC 3-10/hpf (0-2) Urine WBC 6-10/hpf (0-5) Urine Epithelial Cells Occasional/hpf (NONE-MOD) Urine Crystals Amorphous phosphates Urine Bacteria None/hpf (NONE-FEW) Urine Hyaline Casts None/lpf (NONE) Urine Granular Casts None seen (NONE SEEN) Urine Waxy Casts None seen (NONE SEEN) Urine Red Blood Cell Casts None seen (NONE SEEN) Urine White Blood Cell Casts None seen (NONE SEEN) Urine Mucus None seen (None Seen) Urine Trichomonas None seen (NONE SEEN) Urine Yeast None (NONE SEEN) Urinalysis Comment None Urine Culture Reflexed Indicated Vancomycin Level Trough 8.0mcg/mL Procalcitonin 0.17ng/mL (See Comment) White Blood Count 5.4th/mm3 (3.8-10.1) Red Blood Count 4.08mil/mm3 (4.40-5.80) Hemoglobin 12.2g/dL (13.8-17.2) Hematocrit 37.6% (41.0-50.0) Mean Corpuscular Volume 92.2fL (81-100) Mean Corpuscular Hemoglobin 29.9pg (27.0-35.0) Mean Corpuscular Hemoglobin Concent 32.4% (32.0-37.0) Red Cell Distribution Width 14.1% (12.3-15.4) Platelet Count 283bil/L (150-400) Neutrophils (%) (Auto) 60.5% (40-74) Lymphocytes (%) (Auto) 24.5% (14-46) Monocytes (%) (Auto) 10.5% (4-12) Eosinophils (%) (Auto) 4.1% (0-5) Basophils (%) (Auto) 0.2% (0-3) Sodium Level 142mEq/L (134-144) Potassium Level 4.1mEq/L (3.5-5.2) Chloride Level 105mEq/L (97-108) Carbon Dioxide Level 26mmol/L (18-29) Blood Urea Nitrogen 17mg/dL (8-27) Creatinine 0.59mg/dL (0.76-1.27) Estimat Glomerular Filtration Rate 138mL/min (>59) Glucose Level 118mg/dL (60-99) Calcium Level 8.1mg/dL (8.5-10.1) Phosphorus Level 2.5mg/dL (2.5-4.9) Magnesium Level 2.2mg/dL (1.6-2.6) Total Bilirubin 0.2mg/dL (0.0-1.2) Aspartate Amino Transf (AST/SGOT) 18U/L (0-50) Alanine Aminotransferase (ALT/SGPT) 22U/L (0-44) Alkaline Phosphatase 49U/L (25-160) Total Protein 5.3g/dL (6.4-8.4) Albumin 2.6g/dL (3.4-5.0) Microbiology Results Name: KOREY MANZANO Age/Sex: 86/M Attend Dr: Rocky Castro MD Acct: [id number] Unit: [id number] Status: PRE ER Location: SED Re11/17/16 Disch: Specimen: [id number] Collected: 11/17/16 Status: COMP Req#: [id number] Received: 11/17/16 Source: [facility] Sp Desc : Subm Dr: Rocky Castro MD Ordered: RAPID FLU IRS Comments: Collected by Nurse/Unit? Y/N Y Procedure Result Verified Site Microbiology REJI INFLUENZA RAPID AG SCREEN Final 11/17/16 RESULT POSITIVE FOR FLU A NEGATIVE FOR FLU B TIME CALLED: 1925 FLOOR/DOCTOR: [facility] Discharge Medications Discharge Medications Amoxicillin (Amoxicillin) 500 Mg Capsule 500 MG PO TID Prescribed by: HUBERT RODRIGUES MD Aspirin (Aspirin) 81 Mg Tablet 81 MG PO DAILY (Reported) Bethanechol Chloride (Bethanechol Chloride) 5 Mg Tablet 10 MG PO TID (Reported) Finasteride (Finasteride) 5 Mg Tablet 5 MG PO DAILY (Reported) Furosemide (Furosemide) 20 Mg Tab 20 MG PO DAILY (Reported) Heparin Sodium,Porcine (Heparin Sodium) 5,000 Unit/1 Ml Vial 5,000 UNIT SUBQ Q12 Prescribed by: HUBERT RODRIGUES MD Nystatin (Nystatin) 100,000 Unit/1 Ml Oral.susp 500,000 UNIT PO 5XD Prescribed by: HUBERT RODRIGUES MD Tamsulosin ER (Tamsulosin ER) 0.4 Mg Cap.er.24h 0.4 MG PO DAILY (Reported) As needed ([Acetaminophen]) 650 MG SUPP 650 MG RECTAL Q4H PRN PRN For Pain or Temp > 38.5 Prescribed by: HUBERT RODRIGUES MD Ipratropium/Albuterol Sulfate (Iprat-Albut 0.5-3(2.5) mg/3 mL Inhalant Soln) 3 Ml Ampul.neb 3 ML NEB Q4H PRN PRN For Shortness of Breath Prescribed by: HUBERT RODRIGUES MD Ketoconazole (Ketoconazole) 15 Gm Cream..g. 1 APPLIC TOPICAL BID PRN PRN PRN ( Reported) apply to both feet 1-2 x a day as needed Polyethylene Glycol 3350 (Miralax) 17 Gm Powd.pack 17 GM PO DAILY PRN PRN For Constipation Prescribed by: HUBERT RODRIGUES MD Sennosides (Senna) 8.6 Mg Tablet 17.2 MG PO BID PRN PRN For Constipation Prescribed by: HUBERT RODRIGUES MD Followup Plan Disposition: Patient is being discharged to [facility]. Discharge Diet: Other (Per [facility]) Discharge Activity: Other (Per Physical Therapy) Follow-up Provider: Jennifer Benavides MD Follow-up with PCP in: 1 week Time spent Time spent on discharging this patient was greater than 35 minutes , over half of which was involved in counseling and coordination of care. Jim Rodrigues MD Nov 29, 2016 00:36
== END 2016-11-28 16:03 | DRG 871 ==
LOC: SED 18:41 → OBSVTOIN 21:29 → MPC 21:29 → MOC 11-18 09:52 → MPC 11-18 10:03
PROVIDERS: ADMIT Specialist; ATTEND Specialist
DX: A41.9 Sepsis, unspecified organism (principal); G93.41 Metabolic encephalopathy; N39.0 Urinary tract infection, site not specified; J10.1 Influenza due to other identified influenza virus with other respiratory manifestations; Z51.5 Encounter for palliative care; Z66 Do not resuscitate; F03.90 Unspecified dementia, unspecified severity, without behavioral disturbance, psychotic disturbance, mood disturbance, and anxiety; N40.0 Benign prostatic hyperplasia without lower urinary tract symptoms; B95.2 Enterococcus as the cause of diseases classified elsewhere